=== PATIENT | male | born 1940 | race Caucasian/White ===

== ENCOUNTER 2017-07-25 14:49 | Inpatient (IN) | payer MEDICARE, OTHER ==
[~2017-07-25] VITALS: Ht 180.3 cm; Wt 83.9 kg
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
[2017-07-25 15:21] LABS: BASOPHILS # (AUTO) 0.1 /CMM (0.0-0.2); BASOPHILS % (AUTO) 1.8 % (0.0-2.0); EOSINOPHILS % (AUTO) 6.8 % (0.0-6.0); HEMATOCRIT 35 % (39-51); HEMOGLOBIN 12.1 g/dL (13.5-17.5); LYMPHOCYTES # (AUTO) 2.2 /CMM (0.8-4.8); LYMPHOCYTES % (AUTO) 33.8 % (20.0-44.0); MEAN CORPUSCULAR HGB CONC 35 g/dl (31.0-36.0); MEAN CORPUSCULAR VOLUME 94 fL (80-96); MONOCYTES # (AUTO) 0.6 /CMM (0.1-1.30); MONOCYTES % (AUTO) 9.4 % (2.0-12.0); NEUTROPHILS # (AUTO) 3.2 /CMM (1.8-8.9); NEUTROPHILS % (AUTO) 48.2 % (43.0-81.0); PLATELET COUNT (AUTO) 137 /CMM (150-450); RDW COEFFICIENT OF VARIATION 13.4 (11.5-15.0); RED BLOOD CELL COUNT(AUTO) 3.71 MIL/uL (4.5-6.0); WHITE BLOOD COUNT (AUTO) 6.5 K/uL (4.3-11.0)
--- NOTE | 2017-07-25 15:29 | NUR ---
PATIENT TRANSPORTED FOR CT.
[2017-07-25 15:41] LABS: INR 0.93 (0.85-1.15)
[2017-07-25 15:43] LABS: ALANINE AMINOTRANSFERASE 30 U/L (12-78); ALBUMIN 3.2 g/dL (3.4-5.0); ALKALINE PHOSPHATASE 58 U/L (46-116); ASPARTATE AMINOTRANSFERASE 33 U/L (15-37); BILIRUBIN,DIRECT 0.1 mg/dL (0.0-0.2); BILIRUBIN,TOTAL 0.3 mg/dL (0.2-1.0); CALCIUM, SERUM 8.9 mg/dL (8.5-10.1); CARBON DIOXIDE 26 mmol/L (21-32); CREATININE 1.8 mg/dL (0.6-1.3); GLUCOSE 156 mg/dL (74-106); TOTAL PROTEIN, SERUM 7.3 g/dL (6.4-8.2); UREA NITROGEN, BLOOD 39 mg/dL (7-18)
[2017-07-25] MEDS ORDERED: DUTA0.5C PO (15:44)
[2017-07-25] MEDS ORDERED: VALS320T2 PO (15:44)
[2017-07-25] MEDS ORDERED: LEVO50TA8 PO (15:44)
[2017-07-25] MEDS ORDERED: LATA2.5D7 EACHEYE (15:44)
[2017-07-25 15:48] LABS: CHLORIDE 103 mmol/L (98-107); POTASSIUM 4.1 mmol/L (3.5-5.1); SODIUM SERUM 136 mmol/L (136-145)
--- NOTE | 2017-07-25 16:12 | NUR ---
CALLED [employer] SEMI DRIVER WAS PAGED.
--- NOTE | 2017-07-25 16:39 | NUR ---
REPORT GIVEN TO MARISSA AGUILAR FOR FRANSISCA TELE 322-1
--- NOTE | 2017-07-25 17:43 | NUR ---
PAGED EPIC FOR PANEL
[2017-07-25 17:50] VITALS: BP 130/72
[2017-07-25] MEDS ORDERED: ONDANSETRON 4 MG TAB.RAPDIS PO STA (17:58)
[2017-07-25] MEDS ORDERED: MORPHINE SULFATE INJ 2 MG/ML DISP.SYRIN IV STA (17:58)
[2017-07-25] MEDS ORDERED: ONDANSETRON HCL/PF 4 MG/2 ML VIAL ONE (18:07)
[2017-07-25] MEDS ORDERED: MORPHINE SULFATE INJ 4 MG/ML DISP.SYRIN ONE (18:08)
--- NOTE | 2017-07-25 18:35 | NUR ---
ms rn received a new admission from er, 77 year old male,awake,alert,oriented x4,came in w/ a dx of syncope, denies pain at this time. will de admitted by dr. pike, waiting for orders.v//,p73,rr18,t97.8,s98% on room air.
--- NOTE | 2017-07-25 19:04 | NUR ---
ms rn on bed, eating dinner, still waiting for orders,all needs attended.
--- NOTE | 2017-07-25 19:10 | NUR ---
RN OPENING NOTES RECEIVED REPORT FROM AM SHIFT NURSE THAT PATIENT CAME IN THE UNIT VIA GURNEY, ACCOMPANIED BY ER STAFF. RECEIVED PATIENT IN BED, ALERT AND ORIENTED X 4, VERBALIZED THAT HE HAS PAIN WHEN HE MOVES BUT NO NEED FOR PAIN MEDICATION AT THIS TIME. ORIENTED PATIENT TO UNIT, ROOM AND TO THE ADMISSION PROCESS AND PATIENT VERBALIZED UNDERSTANDING. NOTED PATIENT WITH NO SOB, BREATHING EVEN AND UNLABORED AND IN NO ACUTE DISTRESS. BODY SKIN ASSESSMENT DONE, PATIENT IS COOPERATIVE AND FOLLOWS INSTRUCTIONS WELL. ALL NEEDS ATTENDED TO AT THIS TIME. PLACED CALL LIGHT WITHIN EASY REACH, BED LOCKED IN PLACE IN LOW POSITION. WILL CONTINUE TO MONITOR PT.
--- NOTE | 2017-07-25 19:20 | NUR ---
THERAPEUTIC SUPPORT STAFF NOTES PATIENT ON TELE MONITORING WITH SINUS RHYTHM @ 67 BPM. WILL CONTINUE TO MONITOR PT.
[2017-07-25] MEDS ORDERED: Z GUARD REMEDY 2 OZ OINT TP PRN (19:30)
[2017-07-25] MEDS ORDERED: ZOLPIDEM TARTRATE 5 MG TABLET PO PRN (19:30)
[2017-07-25] MEDS ORDERED: ONDANSETRON HCL/PF 4 MG/2 ML VIAL IVP PRN (19:30)
[2017-07-25] MEDS ORDERED: ACETAMINOPHEN 325 MG TABLET PO PRN (19:30)
[2017-07-25] MEDS ORDERED: MAGNESIUM HYDROXIDE 30 ML UDC PO PRN (19:30)
[2017-07-25] MEDS ORDERED: MAG HYDROX/AL HYDROX/SIMETH 30 ML UDC PO PRN (19:30)
[2017-07-25] MEDS: HYDROCODONE/APAP 5/325MG 1 EACH TABLET PO PRN (19:58)
[2017-07-25 20:00] VITALS: BP_SYST 118; BP_SYST 121; BP_DIAS 62; BP_DIAS 69
[2017-07-25] MEDS: IV NS 0.9% 1,000 ML IV PRN (20:05)
[2017-07-26] VITALS: BP 125/70
[2017-07-26] MEDS: HYDROCODONE/APAP 5/325MG 1 EACH TABLET PO PRN ×5 (00:20→22:06)
[2017-07-26 04:00] VITALS: BP_SYST 121; BP_SYST 122; BP_DIAS 68; BP_DIAS 75
[2017-07-26] MEDS: IV NS 0.9% 1,000 ML IV PRN (06:09)
--- NOTE | 2017-07-26 06:21 | NUR ---
PARTNER CCO CLOSING NOTES PATIENT IN BED, EASILY AROUSABLE, NOTED WITH NO SOB, BREATHING EVEN AND UNLABORED, AND IN NO ACUTE DISTRESS. CONTINUES TO RECEIVE IVF ORDERED VIA LEFT HAND IV PERIPHERAL LINE, IVF INFUSING WELL. ON TELE MONITORING WITH SINUS RHYTHM @ 66 BPM. ALL PATIENT'S NEEDS ATTENDED TO THROUGHOUT THE SHIFT. PLACED CALL LIGHT WITHIN EASY REACH, PLACED BED IN LOW POSITION AND LOCKED IN PLACE.
[2017-07-26 06:49] LABS: BASOPHILS % (AUTO) 0.6 % (0.0-2.0); EOSINOPHILS % (AUTO) 4.2 % (0.0-6.0); HEMATOCRIT 31 % (39-51); HEMOGLOBIN 10.6 g/dL (13.5-17.5); LYMPHOCYTES # (AUTO) 1.4 /CMM (0.8-4.8); LYMPHOCYTES % (AUTO) 19.9 % (20.0-44.0); MEAN CORPUSCULAR HGB CONC 34 g/dl (31.0-36.0); MEAN CORPUSCULAR VOLUME 95 fL (80-96); MONOCYTES # (AUTO) 0.8 /CMM (0.1-1.30); MONOCYTES % (AUTO) 10.6 % (2.0-12.0); NEUTROPHILS # (AUTO) 4.6 /CMM (1.8-8.9); NEUTROPHILS % (AUTO) 64.7 % (43.0-81.0); PLATELET COUNT (AUTO) 116 /CMM (150-450); RDW COEFFICIENT OF VARIATION 14.1 (11.5-15.0); RED BLOOD CELL COUNT(AUTO) 3.27 MIL/uL (4.5-6.0); WHITE BLOOD COUNT (AUTO) 7.2 K/uL (4.3-11.0)
[2017-07-26 07:02] LABS: CALCIUM, SERUM 8.2 mg/dL (8.5-10.1); CARBON DIOXIDE 23 mmol/L (21-32); CHLORIDE 106 mmol/L (98-107); CREATININE 1.6 mg/dL (0.6-1.3); GLUCOSE 105 mg/dL (74-106); PHOSPHORUS 3.5 mg/dL (2.5-4.9); POTASSIUM 4.6 mmol/L (3.5-5.1); SODIUM SERUM 137 mmol/L (136-145); UREA NITROGEN, BLOOD 34 mg/dL (7-18)
--- NOTE | 2017-07-26 07:05 | NUR ---
MS RN NOTES RECEIVED PATIENT IN BED ALERT ORIENTED X 4. NO ACUTE DISTRESS NOTED. BREATHING UNLABORED. IV ACCESS PATENT AND INTACT. SAFETY MEASURES IN PLACE. WILL CONTINUE TO MONITOR ACCORDINGLY.
[2017-07-26 07:49] LABS: CHOLESTEROL 151 mg/dL (<200); HDL CHOLESTEROL 95 mg/dL (40-60); LDL 80 mg/dL (0-99); TRIGLYCERIDES 21 mg/dL (30-150)
[2017-07-26 08:00] VITALS: BP 135/68
[2017-07-26] MEDS: VALSARTAN 80 MG TABLET PO SCH (08:02)
[2017-07-26] MEDS: DUTASTERIDE (0.5 MG) 0.5 MG CAPSULE PO SCH (08:02)
[2017-07-26] MEDS: LEVOTHYROXINE SODIUM 50 MCG TABLET PO SCH (08:41)
--- NOTE | 2017-07-26 08:50 | NUR ---
RN NOTES SEEN AND EVALUATED BY DR CARRION WITH NEW ORDERS MADE. NOTED AND CARRIED OUT.
[2017-07-26 08:58] LABS: TROPONIN I 0.021 ng/mL (0.00-0.056)
[2017-07-26] MEDS ORDERED: IV NS 0.9% 1,000 ML BAG IV SCH (09:00)
[2017-07-26 09:09] LABS: THYROID STIMULATING HORMONE 1.322 uIU/mL (0.358-3.74)
[2017-07-26] MEDS: IV NS 0.9% 1,000 ML IV SCH ×2 (09:12→14:59)
--- NOTE | 2017-07-26 10:40 | NUR ---
RN NOTES SEEN AND EVALUATED BY DR EWING WITH NEW ORDERS MADE. NOTED AND CARRIED OUT.
--- NOTE | 2017-07-26 11:08 | NUR ---
WOUND CARE CONSULT: PT PRESENTS WITH LEFT ELBOW ABRASION AND DRY ABRASION, BRUISING TO CHEST WELL LARGE AREA OF BRUISING TO LEFT HIP/PELVIC REGION, PRESENT ON ADMISSION. PT INDEPENDENT WITH BED MOBILITY AND GETS UP TO BATHROOM WITH ASSISTANCE. RECOMMENDATIONS MADE FOR WOUND CARE AND DISCUSSED WITH NURSING STAFF. WILL SEE PRN. BRUNSON IN AGREEMENT WITH PLAN OF CARE. Addendum: 07/26/17 at 1109 by OMARI PINEDA WNDNU Amended: Links added.
[2017-07-26 12:00] VITALS: BP 145/70
[2017-07-26 16:00] VITALS: BP 119/62
--- NOTE | 2017-07-26 19:05 | NUR ---
MS RN NOTES PATIENT IN BED ALERT ORIENTED X 4. NO ACUTE DISTRESS NOTED. BREATHING UNLABORED. IV ACCESS PATENT AND INTACT. SAFETY MEASURES IN PLACE. DUE MEDICATIONS GIVEN, NO ASE NOTED. ENDORSED TO NIGHT NURSE FOR CONTINUITY OF CARE.
[2017-07-26 20:00] VITALS: BP 133/73
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
[2017-07-26] MEDS: NEOMY SULF/BACITRAC ZN/POLY 15 GM TUBE TP SCH (21:21)
[2017-07-26] MEDS: LATANOPROST EYE DROP 0.005% 2.5 ML BOTTLE EACHEYE SCH (22:00)
--- NOTE | 2017-07-26 22:00 | NUR ---
telephone operators supervisor notes fili was not given d/t unavailability of the meds will flu in pharmacy in am, will endorse to next shift.
[2017-07-27] VITALS: BP 129/67
[2017-07-27] MEDS: HYDROCODONE/APAP 5/325MG 1 EACH TABLET PO PRN ×5 (02:52→21:09)
[2017-07-27 04:00] VITALS: BP_SYST 118; BP_SYST 128; BP_DIAS 61; BP_DIAS 68
--- NOTE | 2017-07-27 06:42 | NUR ---
telemarketing supervisor notes pts remain in bed awake and responsive , no significant change noted, will endorse to rn day shift for continuity of care.
[2017-07-27 06:45] LABS: BASOPHILS % (AUTO) 0.6 % (0.0-2.0); EOSINOPHILS % (AUTO) 4.9 % (0.0-6.0); HEMATOCRIT 31 % (39-51); HEMOGLOBIN 10.6 g/dL (13.5-17.5); LYMPHOCYTES # (AUTO) 1.2 /CMM (0.8-4.8); LYMPHOCYTES % (AUTO) 16.9 % (20.0-44.0); MEAN CORPUSCULAR HGB CONC 34 g/dl (31.0-36.0); MEAN CORPUSCULAR VOLUME 97 fL (80-96); MONOCYTES # (AUTO) 0.9 /CMM (0.1-1.30); MONOCYTES % (AUTO) 11.7 % (2.0-12.0); NEUTROPHILS # (AUTO) 4.8 /CMM (1.8-8.9); NEUTROPHILS % (AUTO) 65.9 % (43.0-81.0); PLATELET COUNT (AUTO) 108 /CMM (150-450); WHITE BLOOD COUNT (AUTO) 7.3 K/uL (4.3-11.0)
[2017-07-27 06:57] LABS: TROPONIN I < 0.017 ng/mL (0.00-0.056)
--- NOTE | 2017-07-27 07:10 | NUR ---
RN NOTES PT IS SITTING UP IN BED, ALERT AND ORIENTED, RESTING COMFORTABLY. PT ON RA, RESPIRATIONS ARE EVEN AND UNLABORED. IV ON R HAND INTACT AND SL. SAFETY MEASURES ARE IN PLACE, CALL LIGHT IS IN REACH. WILL CONTINUE TO MONITOR.
[2017-07-27] MEDS: LEVOTHYROXINE SODIUM 50 MCG TABLET PO SCH (07:21)
[2017-07-27 07:26] LABS: ALBUMIN 2.5 g/dL (3.4-5.0); ALKALINE PHOSPHATASE 40 U/L (46-116); ASPARTATE AMINOTRANSFERASE 52 U/L (15-37); BILIRUBIN,TOTAL 0.5 mg/dL (0.2-1.0); CALCIUM, SERUM 8.4 mg/dL (8.5-10.1); CARBON DIOXIDE 22 mmol/L (21-32); CHLORIDE 107 mmol/L (98-107); CREATININE 1.5 mg/dL (0.6-1.3); GLUCOSE 107 mg/dL (74-106); MAGNESIUM 1.5 mg/dL (1.8-2.4); POTASSIUM 4.6 mmol/L (3.5-5.1); SODIUM SERUM 136 mmol/L (136-145); TOTAL PROTEIN, SERUM 6.8 g/dL (6.4-8.2); UREA NITROGEN, BLOOD 28 mg/dL (7-18)
[2017-07-27 07:28] LABS: ALANINE AMINOTRANSFERASE < 12 U/L (12-78)
[2017-07-27 08:00] VITALS: BP 152/90
[2017-07-27] MEDS: DUTASTERIDE (0.5 MG) 0.5 MG CAPSULE PO SCH (08:14)
[2017-07-27] MEDS: VALSARTAN 80 MG TABLET PO SCH (08:14)
[2017-07-27] MEDS: NEOMY SULF/BACITRAC ZN/POLY 15 GM TUBE TP SCH (08:16)
[2017-07-27] MEDS: Magnesium 1GM/D5W 100ML PREMIX 100 ML IV SCH ×2 (08:42→09:45)
[2017-07-27 16:00] VITALS: BP 133/75
--- NOTE | 2017-07-27 18:30 | NUR ---
RN NOTES PT IS SITTING UP IN BED, ALERT AND ORIENTED. PT ON RA, RESPIRATIONS ARE EVEN AND UNLABORED. IV ON R HAND INTACT AND SL. ALL MEDS WERE GIVEN ORDERED AND PT NEEDS MET. NO SIGNS OF DISTRESS NOTED. SAFETY MEASURES ARE IN PLACE, CALL LIGHT IS IN REACH. WILL ENDORSE TO PUBLIC INFORMATION OFFICER RN FOR CONTINUITY OF CARE.
--- NOTE | 2017-07-27 19:30 | NUR ---
MS.RN OPENING NOTES PATIENT IN BED, ALERT, ORIENTED X3, ABLE TO VERBALIZED NEEDS, DENIES PAIN, ON PAIN MONITORING, WILL CONTINUE TO PROVIDE CARE, SKIN WARM TO TOUCH,RESPIRATIONS EVEN AND UNLABORED, REQUIRE SUPERVISION AND ASSISTANCE FOR PREVENTION OF FALL, BED IN LOCK POSITION, CALL LIGHTS WITHIN REACH. WILL MONITOR.
[2017-07-27 20:00] VITALS: BP 150/81
[2017-07-27] MEDS: LATANOPROST EYE DROP 0.005% 2.5 ML BOTTLE EACHEYE SCH (22:00)
[2017-07-28] MEDS: HYDROCODONE/APAP 5/325MG 1 EACH TABLET PO PRN ×2 (02:47→10:31)
--- NOTE | 2017-07-28 02:49 | NUR ---
MS/RN NOTES PAIN OF 8/10 REPORTED BY PATIENT, OBSERVE GUARDINGAND GRIMACE AFTER AMBULATING AND CHANGING POSITIONS, BLOOD PRESSURE CHECK AT 160/80. NORCO 5-325 MG PO GIVEN, WILL MONITOR RELIEF OF PAIN.
--- NOTE | 2017-07-28 06:13 | NUR ---
321-1MS/RN NOTES PATIENT IN BED, ABLE TO VERBALIZE NEEDS AT ALL TIMES, BRP WITH SUPERVISION, NEEDED PAIN MEDICATION GIVEN , RESPIRATIONS EVEN AND UNLABORED, RAMO TO SLEEP DURING THE NIGHT, BED IN LOCK POSITION, CALL LIGHTS WITHIN REACH, WILL CONTINUE TO MONITOR.. WILL ENDORSE TO AM RN FOR FRANSISCA
[2017-07-28] MEDS: LEVOTHYROXINE SODIUM 50 MCG TABLET PO SCH (06:38)
[2017-07-28 06:55] LABS: BASOPHILS % (AUTO) 0.6 % (0.0-2.0); EOSINOPHILS % (AUTO) 6.1 % (0.0-6.0); HEMATOCRIT 32 % (39-51); HEMOGLOBIN 10.9 g/dL (13.5-17.5); LYMPHOCYTES # (AUTO) 1.4 /CMM (0.8-4.8); LYMPHOCYTES % (AUTO) 17.5 % (20.0-44.0); MEAN CORPUSCULAR HGB CONC 34 g/dl (31.0-36.0); MEAN CORPUSCULAR VOLUME 94 fL (80-96); MONOCYTES # (AUTO) 0.9 /CMM (0.1-1.30); MONOCYTES % (AUTO) 11.6 % (2.0-12.0); NEUTROPHILS % (AUTO) 64.2 % (43.0-81.0); PLATELET COUNT (AUTO) 122 /CMM (150-450); RDW COEFFICIENT OF VARIATION 14.1 (11.5-15.0); RED BLOOD CELL COUNT(AUTO) 3.39 MIL/uL (4.5-6.0); WHITE BLOOD COUNT (AUTO) 7.8 K/uL (4.3-11.0)
[2017-07-28 07:16] LABS: CALCIUM, SERUM 8.5 mg/dL (8.5-10.1); CARBON DIOXIDE 26 mmol/L (21-32); CHLORIDE 105 mmol/L (98-107); CREATININE 1.6 mg/dL (0.6-1.3); GLUCOSE 101 mg/dL (74-106); POTASSIUM 4.6 mmol/L (3.5-5.1); SODIUM SERUM 137 mmol/L (136-145); UREA NITROGEN, BLOOD 26 mg/dL (7-18)
--- NOTE | 2017-07-28 07:35 | NUR ---
RN OPENING NOTES RECEIVED PT. IN BED A&OX4. BREATHING UNLABORED, AND EVENLY ON ROOM AIR. NO S/S OF ACUTE DISTRESS. BED IS IN LOWEST, AND LOCKED POSITION, SIDE RAILS UP, AND INSTRUCTED PT. TO USE CALL LIGHT FOR ASSISTANCE. ALL NEEDS MET. WILL CONTINUE TO ASSESS AND MONITOR.
[2017-07-28 08:00] VITALS: BP 133/73
[2017-07-28 08:26] VITALS: BP 133/73
[2017-07-28] MEDS: VALSARTAN 80 MG TABLET PO SCH (08:26)
[2017-07-28] MEDS: DUTASTERIDE (0.5 MG) 0.5 MG CAPSULE PO SCH (08:26)
[2017-07-28] MEDS: NEOMY SULF/BACITRAC ZN/POLY 15 GM TUBE TP SCH (08:27)
[2017-07-28] MEDS ORDERED: HYDR-3972 PO (08:39)
--- NOTE | 2017-07-28 12:18 | NUR ---
COMMERCIAL CLEANER NOTES PT. WAS DISCHARGED IN MEDICALLY STABLE CONDITION BY PRIVATE CAR WITH A FRIEND. DISCHARGE INSTRUCTIONS WERE GIVEN WITH EDUCATION ON NEW PRESCRIPTION, AND FOLLOW UP APPOINTMENTS, PT. VERBALIZED UNDERSTANDING. BELONGINGS LIST WAS CHECKED AND SIGNED. PT. WAS GIVEN PRESCRIPTION WITH EDUCATION AND VERBALIZED UNDERSTANDING. ID BAND, AND IV WAS REMOVED WITHOUT COMPLICATIONS. PICTURES WERE TAKEN AND WOUND CARE WAS PERFORMED, PT. TOLERATED WELL. ALL QUESTIONS WERE ANSWERED. PT. WAS ENCOURAGED TO STAY HYDRATED.
--- NOTE | 2017-07-28 12:22 | NUR ---
SOLE LEVELING MACHINE OPERATOR PT. LEFT WITH DISCHARGE PACKET, AND BELONGINGS.
--- NOTE | 2017-07-28 12:29 | NUR ---
RN NOTES DISCHARGE BEFORE PT. LEFT EXPLAINED TO PT., PER DR. MCCARTNEY NOTES, HE SHOULD NOT DRIVE FOR AT LEAST 6 MONTHS. DISCUSSED WITH PT., AND ALSO RECOMMENDED FOR PT. TO FOLLOW UP WITH HIS PCP IN ONE WEEK. PT. VERBALIZED UNDERSTANDING.
== END 2017-07-28 12:15 | disposition home or self-care (01) | DRG 683 ==
LOC: ER 14:52 → TELE 16:38 → MED 18:30 → TELE 21:53 → MED 07-27 09:38
PROVIDERS: ADMIT Family Medicine; ATTEND Family Medicine
DX: N17.0 Acute kidney failure with tubular necrosis (principal); S22.21XA Fracture of manubrium, initial encounter for closed fracture; E44.1 Mild protein-calorie malnutrition; E83.42 Hypomagnesemia; J43.9 Emphysema, unspecified; D63.8 Anemia in other chronic diseases classified elsewhere; Z82.49 Family history of ischemic heart disease and other diseases of the circulatory system; E86.9 Volume depletion, unspecified; D50.9 Iron deficiency anemia, unspecified; F10.10 Alcohol abuse, uncomplicated; S51.012A Laceration without foreign body of left elbow, initial encounter; E03.9 Hypothyroidism, unspecified; N18.3 Chronic kidney disease, stage 3 (moderate); Y92.410 Unspecified street and highway as the place of occurrence of the external cause; V89.2XXA Person injured in unspecified motor-vehicle accident, traffic, initial encounter; I12.9 Hypertensive chronic kidney disease with stage 1 through stage 4 chronic kidney disease, or unspecified chronic kidney disease; Z79.899 Other long term (current) drug therapy; N40.0 Benign prostatic hyperplasia without lower urinary tract symptoms; S61.412A Laceration without foreign body of left hand, initial encounter; Z87.891 Personal history of nicotine dependence; Z86.73 Personal history of transient ischemic attack (TIA), and cerebral infarction without residual deficits; H40.9 Unspecified glaucoma; R73.9 Hyperglycemia, unspecified; R91.1 Solitary pulmonary nodule; Y90.9 Presence of alcohol in blood, level not specified
CPT/HCPCS: 36415; 70450-TC; 71045-TC; 71250-TC; 80048-TC; 80053-TC; 80061-TC; 80076-TC; 82306; 82728-TC; 82962-TC; 83540-TC; 83735-TC; 84100-TC; 84439-TC; 84443-TC; 84484-TC; 85025-TC; 85730-TC; 87081-TC; 93307-TC; 93880-TC; 95819-TC; A4217; A4606; A6253; A6402; A6403; J2270; J2405; J3475; J7030; J7050; Z7610

== ENCOUNTER 2017-07-31 13:17 | Outpatient (CLI) | payer MEDICARE, OTHER ==
[~2017-07-31 13:17] MED LIST: DUTA0.5C PO; HYDR-3972 PO; LATA2.5D7 EACHEYE; LEVO50TA8 PO; VALS320T2 PO
== END 2017-07-31 23:59 | disposition home or self-care (01) ==
LOC: MSC 13:17
PROVIDERS: ATTEND Internal Medicine
DX: S22.20XD Unspecified fracture of sternum, subsequent encounter for fracture with routine healing (principal); V49.9XXD Car occupant (driver) (passenger) injured in unspecified traffic accident, subsequent encounter; Y92.89 Other specified places as the place of occurrence of the external cause; E46 Unspecified protein-calorie malnutrition; I10 Essential (primary) hypertension; N40.0 Benign prostatic hyperplasia without lower urinary tract symptoms; H40.9 Unspecified glaucoma; R91.1 Solitary pulmonary nodule

== ENCOUNTER 2018-04-28 15:04 | Emergency (ER) | payer MEDICARE, OTHER ==
[~2018-04-28] VITALS: Ht 172.7 cm; Wt 86.2 kg
[2018-04-28] MEDS ORDERED: TDAP [DIPH/PERTUSSIS/TET] 0.5 ML VIAL IM ONE ×2 (15:30→16:21)
--- NOTE | 2018-04-28 16:09 | NUR ---
PT BROUGHT IN BY PARAMEDICS FOR GLF INJURY TO LEFT ELBOW. PT ALERT AND ORIENTED X 3 WOUND CARE DONE X-RAY COMPLETED. WILL MONITOR PT.
--- NOTE | 2018-04-28 17:06 | NUR ---
PT HAD LONG ARM SPLINT PLACED ON LEFT ARM GIVEN ACI PRESCRPTION AND TOLD TO F/U WITH ORTHO MD . PT CALLED FRIEND TO BE PICKED UP
[2018-04-28 17:07] VITALS: BP 157/76
[2018-05-09] MEDS ORDERED: FERR-56 PO (11:38)
== END 2018-04-28 17:08 | disposition home or self-care (01) ==
LOC: ER 15:05
DX: S52.022A Displaced fracture of olecranon process without intraarticular extension of left ulna, initial encounter for closed fracture (principal); S00.81XA Abrasion of other part of head, initial encounter; I10 Essential (primary) hypertension; F10.10 Alcohol abuse, uncomplicated; Y90.9 Presence of alcohol in blood, level not specified; Z60.2 Problems related to living alone; W18.09XA Striking against other object with subsequent fall, initial encounter; Y93.01 Activity, walking, marching and hiking; Y92.89 Other specified places as the place of occurrence of the external cause; Y99.8 Other external cause status
CPT/HCPCS: 73080-TC; 90715; A6403

== ENCOUNTER 2018-04-29 17:45 | Emergency (ER) | payer MEDICARE, OTHER ==
[~2018-04-29] VITALS: Ht 180.3 cm; Wt 87.1 kg
[2018-04-29 17:50] VITALS: BP 156/72
[2018-05-09] MEDS ORDERED: FERR-56 PO (11:38)
== END 2018-04-29 19:13 | disposition home or self-care (01) ==
LOC: ER 17:49
DX: S51.012A Laceration without foreign body of left elbow, initial encounter (principal); L76.22 Postprocedural hemorrhage of skin and subcutaneous tissue following other procedure; I10 Essential (primary) hypertension; F10.10 Alcohol abuse, uncomplicated; Y90.9 Presence of alcohol in blood, level not specified; Z60.2 Problems related to living alone; W18.39XA Other fall on same level, initial encounter; Y93.89 Activity, other specified; Y92.89 Other specified places as the place of occurrence of the external cause; Y99.8 Other external cause status
CPT/HCPCS: A6253; A6403

== ENCOUNTER 2018-05-02 23:55 | Emergency (ER) | payer MEDICARE ==
[~2018-05-02] VITALS: Ht 180.3 cm; Wt 83.9 kg
[2018-05-03 00:06] VITALS: BP 149/74
[2018-05-03] MEDS ORDERED: GELATIN SPONGE,ABSORBABLE 1 SPONGE SPONGE TP ONE ×2 (00:37→01:19)
[2018-05-03] MEDS: GELATIN SPONGE,ABSORBABLE 1 SPONGE SPONGE TP ONE (00:57)
[2018-05-09] MEDS ORDERED: FERR-56 PO (11:38)
== END 2018-05-03 02:24 | disposition home or self-care (01) ==
LOC: ER 05-03 00:02
DX: S52.022D Displaced fracture of olecranon process without intraarticular extension of left ulna, subsequent encounter for closed fracture with routine healing (principal); I10 Essential (primary) hypertension; F10.10 Alcohol abuse, uncomplicated; Y90.9 Presence of alcohol in blood, level not specified; Z60.2 Problems related to living alone; W18.39XD Other fall on same level, subsequent encounter
CPT/HCPCS: A6402

== ENCOUNTER 2018-05-04 09:59 | Day surgery (SDC) | payer MEDICARE, OTHER ==
[2018-05-04] MEDS ORDERED: CEFAZOLIN SODIUM/DEXTROSE,ISO 50 ML IV ONE (11:29)
[2018-05-04] MEDS ORDERED: BACITRACIN 50000 UNITS/VIAL ONE (12:15)
[2018-05-04] MEDS ORDERED: ANESTHESIA TRAY IN PYXIS 1 EA TRAY MC ONE (12:17)
[2018-05-04] MEDS ORDERED: BUPIVACAINE MPF W/EPI 0.25% 30 ML VIAL ONE (12:17)
[2018-05-04] MEDS ORDERED: BUPIVACAINE 0.5 % PF 150 MG/30 ML VIAL ONE (13:39)
[2018-05-04] MEDS ORDERED: BACITRACIN ZINC OINT (15 GM) 15 GM TUBE TP ONE (13:41)
[2018-05-04] MEDS ORDERED: FENTANYL PF 100MCG/2ML AMPUL ONE (14:03)
[2018-05-04] MEDS ORDERED: HYDROMORPHONE 1 MG/1 ML DISP.SYRIN ONE (14:08)
[2018-05-04] MEDS ORDERED: HYDROCODONE/APAP 5/325MG 1 EACH TABLET ONE ×2 (14:36→14:55)
[2018-05-09] MEDS ORDERED: FERR-56 PO (11:38)
== END 2018-05-04 16:30 | disposition home or self-care (01) ==
LOC: DS 09:59
PROVIDERS: ATTEND Student in an Organized Health Care Education/Training Program
DX: S52.022A Displaced fracture of olecranon process without intraarticular extension of left ulna, initial encounter for closed fracture (principal); H40.9 Unspecified glaucoma; E03.9 Hypothyroidism, unspecified; Z80.3 Family history of malignant neoplasm of breast; Z88.1 Allergy status to other antibiotic agents; I12.9 Hypertensive chronic kidney disease with stage 1 through stage 4 chronic kidney disease, or unspecified chronic kidney disease; N18.3 Chronic kidney disease, stage 3 (moderate); Z82.49 Family history of ischemic heart disease and other diseases of the circulatory system; X58.XXXA Exposure to other specified factors, initial encounter; Y93.89 Activity, other specified; Y92.89 Other specified places as the place of occurrence of the external cause; Y99.8 Other external cause status; Z79.899 Other long term (current) drug therapy
CPT/HCPCS: 24685; 73080; A4565; A4606; A6253; A6402 ×2; C1713 ×2; J0690 ×2; J1100; J1170; J2704; J3010; J3490 ×3; J7120; Z7610

== ENCOUNTER 2018-05-08 09:39 | Inpatient (IN) | payer MEDICARE ==
[~2018-05-08] VITALS: Ht 180.3 cm; Wt 88.5 kg
[2018-05-08 09:59] LABS: BASOPHILS # (AUTO) 0.1 /CMM (0.0-0.2); BASOPHILS % (AUTO) 0.9 % (0.0-2.0); EOSINOPHILS % (AUTO) 5.5 % (0.0-6.0); HEMATOCRIT 31 % (39-51); HEMOGLOBIN 10.7 g/dL (13.5-17.5); LYMPHOCYTES # (AUTO) 1.1 /CMM (0.8-4.8); LYMPHOCYTES % (AUTO) 14.9 % (20.0-44.0); MEAN CORPUSCULAR HGB CONC 34 g/dl (31.0-36.0); MEAN CORPUSCULAR VOLUME 96 fL (80-96); MONOCYTES # (AUTO) 0.8 /CMM (0.1-1.30); MONOCYTES % (AUTO) 11.3 % (2.0-12.0); NEUTROPHILS # (AUTO) 4.8 /CMM (1.8-8.9); NEUTROPHILS % (AUTO) 67.4 % (43.0-81.0); PLATELET COUNT (AUTO) 212 /CMM (150-450); RED BLOOD CELL COUNT(AUTO) 3.27 MIL/uL (4.5-6.0); WHITE BLOOD COUNT (AUTO) 7.1 K/uL (4.3-11.0)
--- NOTE | 2018-05-08 10:00 | NUR ---
PT [id number] S/P SYNCOPE X2, SECOND EPISODE WITNESSED BY EMS WHILE SEATED. PT DENIES MURILLO OR DIZZINESS. PT DENIES TRAUMA DURING SYNCOPE. DENIES CP/SOB. RESP EVEN UNLABORED. SKIN WARM DRY, NOTED L ARM EDEMA 2/2 RECENT ELBOW SURGERY S/P GLF LAST WEEK, WITH HOLLY INTACT AND OPEN TO AIR. SKIN TEARS NOTED, APPEAR TO BE HEALING, PT REPORTS THEY ARE FROM INITIAL FALL LAST WEEK. PLACED ON MONITOR IN ER BED 10. MD AT BEDSIDE.
[2018-05-08 10:09] LABS: CALCIUM, SERUM 9.4 mg/dL (8.5-10.1); CARBON DIOXIDE 26 mmol/L (21-32); CHLORIDE 97 mmol/L (98-107); CREATININE 1.7 mg/dL (0.6-1.3); GLUCOSE 140 mg/dL (74-106); POTASSIUM 4.9 mmol/L (3.5-5.1); SODIUM SERUM 129 mmol/L (136-145); UREA NITROGEN, BLOOD 34 mg/dL (7-18)
[2018-05-08 10:15] LABS: ALANINE AMINOTRANSFERASE 19 U/L (12-78); ALBUMIN 2.9 g/dL (3.4-5.0); ALKALINE PHOSPHATASE 58 U/L (46-116); ASPARTATE AMINOTRANSFERASE 21 U/L (15-37); BILIRUBIN,DIRECT 0.1 mg/dL (0.0-0.2); BILIRUBIN,TOTAL 0.5 mg/dL (0.2-1.0); TOTAL PROTEIN, SERUM 7.1 g/dL (6.4-8.2)
--- NOTE | 2018-05-08 10:28 | NUR ---
EPIC PANEL PAGED
--- NOTE | 2018-05-08 10:45 | NUR ---
ASKED FOR BED
--- NOTE | 2018-05-08 10:58 | NUR ---
GOT BED 320-1
[2018-05-08] MEDS ORDERED: Z GUARD REMEDY 2 OZ OINT TP PRN (11:00)
[2018-05-08] MEDS ORDERED: ONDANSETRON HCL/PF 4 MG/2 ML VIAL IVP PRN (11:00)
[2018-05-08] MEDS ORDERED: ACETAMINOPHEN 325 MG TABLET PO PRN (11:00)
[2018-05-08] MEDS ORDERED: MAGNESIUM HYDROXIDE 30 ML UDC PO PRN (11:00)
[2018-05-08] MEDS ORDERED: MAG HYDROX/AL HYDROX/SIMETH 30 ML UDC PO PRN (11:00)
--- NOTE | 2018-05-08 11:00 | NUR ---
DR CARRION AT BEDSIDE.
--- NOTE | 2018-05-08 11:11 | NUR ---
REPORT GIVEN TO RAEGAN ANN FOR ADMISSION
[2018-05-08] MEDS ORDERED: AMOX1TAB16 PO (11:14)
--- NOTE | 2018-05-08 11:30 | NUR ---
PT TRANSPORTED TO [facility] IN STABLE CONDITION VIA ACLS PROTOCOL
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
[2018-05-08 11:40] VITALS: BP 139/74
[2018-05-08] MEDS: HYDROCODONE/APAP 5/325MG 1 EACH TABLET PO PRN ×3 (12:06→20:37)
[2018-05-08] MEDS: IV NS 0.9% 1,000 ML IV PRN ×2 (12:06→23:59)
[2018-05-08 12:42] LABS: THYROID STIMULATING HORMONE 0.693 uIU/mL (0.358-3.74)
[2018-05-08 16:00] VITALS: BP 131/70
--- NOTE | 2018-05-08 18:57 | NUR ---
RN CLOSING NOTE PT IN BED RESTING. NO S/S OF RESP DISTRESS/SOB. NO C/O PAIN AT THIS TIME. ALL PT NEEDS ANTICIPATED AND MET. SAFETY MEASURES IN PLACE, CALL LIGHT WITHIN REACH. WILL ENDORSE TO RECEIVING DISTRIBUTION STATION OPERATOR FOR FRANSISCA.
[2018-05-08 20:00] VITALS: BP 143/73
--- NOTE | 2018-05-08 20:05 | NUR ---
AMUSEMENT EQUIPMENT OPERATOR OPENING NOTES RECEIVED REPORT FROM RAEGAN ANN. PATIENT A/A/O X4, ABLE TO MAKE NEEDS KNOWN. BREATHING EVEN & UNLABORED, TOLERATING ROOM AIR. ON TELE W/ SINUS RHYTHM & RADIAL PULSES PRESENT. RIGHT AC IV #20 INTACT & PATENT W/ DRESSING CDI W/ IVF NS INFUSING WELL @ 100 ML/HR. C/O LEFT ARM PAIN, PAIN MED TO BE GIVEN. LEFT ARM MAINTAINED IN SLING & ELEVATED. SAFETY MEASURES IN PLACE W/ SIDE RAILS UP & BED ALARM ON. INSTRUCTED TO USE CALL LIGHT FOR ASSISTANCE. WILL CONTINUE TO MONITOR.
[2018-05-08] MEDS ORDERED: ATORVASTATIN 10 MG TABLET PO SCH (22:00)
[2018-05-08] MEDS ORDERED: LATANOPROST EYE DROP 0.005% 2.5 ML BOTTLE EACHEYE SCH (22:00)
[2018-05-08] MEDS ORDERED: LATANOPROST EYE DROP 0.005% 2.5 ML BOTTLE ONE (22:14)
[2018-05-09] VITALS: BP 136/74
[2018-05-09] MEDS: HYDROCODONE/APAP 5/325MG 1 EACH TABLET PO PRN ×2 (01:41→10:29)
[2018-05-09 04:00] VITALS: BP 145/76
[2018-05-09 06:21] LABS: APPEARANCE,URINE CLEAR (CLEAR); BILIRUBIN,URINE NEGATIVE (NEGATIVE); BLOOD, URINE NEGATIVE Ery/uL (NEGATIVE); COLOR,URINE YELLOW (YELLOW); KETONES,URINE NEGATIVE (NEGATIVE); LEUKOCYTE ESTERASE ,URINE NEGATIVE (NEGATIVE); NITRITE, URINE NEGATIVE (NEGATIVE); PH,URINE 6.5 (5.0-8.0); PROTEIN,URINE NEGATIVE (NEGATIVE); UGLUCOSE NEGATIVE (NEGATIVE); UROBILINOGEN,URINE 0.2 EU/dL (0.2)
[2018-05-09 07:08] LABS: BASOPHILS % (AUTO) 0.6 % (0.0-2.0); EOSINOPHILS % (AUTO) 5.9 % (0.0-6.0); HEMATOCRIT 30 % (39-51); HEMOGLOBIN 10.3 g/dL (13.5-17.5); LYMPHOCYTES # (AUTO) 0.9 /CMM (0.8-4.8); MEAN CORPUSCULAR HGB CONC 34 g/dl (31.0-36.0); MEAN CORPUSCULAR VOLUME 95 fL (80-96); MONOCYTES # (AUTO) 0.9 /CMM (0.1-1.30); MONOCYTES % (AUTO) 12.4 % (2.0-12.0); NEUTROPHILS # (AUTO) 4.7 /CMM (1.8-8.9); NEUTROPHILS % (AUTO) 68.1 % (43.0-81.0); PLATELET COUNT (AUTO) 205 /CMM (150-450); RED BLOOD CELL COUNT(AUTO) 3.14 MIL/uL (4.5-6.0)
[2018-05-09 07:24] LABS: CALCIUM, SERUM 8.9 mg/dL (8.5-10.1); CARBON DIOXIDE 25 mmol/L (21-32); CHLORIDE 99 mmol/L (98-107); CREATININE 1.5 mg/dL (0.6-1.3); GLUCOSE 103 mg/dL (74-106); PHOSPHORUS 3.4 mg/dL (2.5-4.9); POTASSIUM 4.6 mmol/L (3.5-5.1); SODIUM SERUM 133 mmol/L (136-145); UREA NITROGEN, BLOOD 32 mg/dL (7-18)
[2018-05-09 07:30] LABS: CHOLESTEROL 123 mg/dL (<200); HDL CHOLESTEROL 65 mg/dL (40-60); LDL 57 mg/dL (0-99); THYROID STIMULATING HORMONE 0.288 uIU/mL (0.358-3.74); TRIGLYCERIDES 37 mg/dL (30-150)
[2018-05-09] MEDS ORDERED: LEVOTHYROXINE SODIUM 50 MCG TABLET PO SCH (07:30)
[2018-05-09 08:00] VITALS: BP 148/80
--- NOTE | 2018-05-09 08:00 | NUR ---
RN NOTES PATIENT SEEN IN THE BED A/O X3/4 MALE. PATIENT STABLE HAS NO ACUTE RESPIRATORY DISTRESS, ENCOURAGED TO EXPRESS FEELINGS AND CONCERNS. SCHEDULED MEDICATION ADMINISTERED. INFUSING NS AT 100 MG/ML ON RIGHT AC AREA INTACT. ASSIST PATIENT TO THE BATHROOM. PATIENT HAS FRACTURE OF LEFT ARM. CALL LIGHT WITHIN TOO REACH. SAFETY PRECAUTION MAINTAINED ALL THE TIME.
[2018-05-09] MEDS ORDERED: PANTOPRAZOLE 40 MG TABLET.DR PO SCH (08:01)
[2018-05-09] MEDS ORDERED: VALSARTAN 80 MG TABLET PO SCH (09:00)
[2018-05-09] MEDS ORDERED: ASPIRIN 81 MG TAB.CHEW PO SCH (09:00)
[2018-05-09] MEDS ORDERED: PANTOPRAZOLE 40 MG VIAL IV SCH (09:00)
[2018-05-09] MEDS ORDERED: DUTASTERIDE (0.5 MG) 0.5 MG CAPSULE PO SCH (09:00)
--- NOTE | 2018-05-09 10:29 | NUR ---
RN NOTES ADMINISTERED NARCO 5/325 MG PO PRN FOR LEFT ARM PAIN 5/10 PER PATIENT REQUEST, V/S TAKEN BP-140/78, P-72, CONTINUED MONITORING.
--- NOTE | 2018-05-09 11:00 | NUR ---
RN NOTES PATIENT STABLE GOING TO D/C HOME PER JEWEL HANNAH.
[2018-05-09] MEDS ORDERED: FERR-56 PO (11:38)
[2018-05-09 12:00] VITALS: BP 130/78
[2018-05-09] MEDS ORDERED: SOD FERRIC GLUC 125 MG in IV NS 0.9% 100 ML IV SCH (14:00)
--- NOTE | 2018-05-09 18:05 | NUR ---
DISCHARGE NOTES PATIENT DISCHARGE AT THIS TIME GOING HOME WITH HOME HEALTH. PATIENT STABLE, V/S STABLE, NO COMPLAINING OF PAIN AT THIS TIME. MED RECONCILIATION AND DISCHARGE ORDER REVIEWED AND EXPLAINED TO PATIENT. PATIENT VERBALIZED UNDERSTANDING. BELONGING WITH THE PATIENT, PATIENT WILL FOLLOW PRIMARY MD, AND SURGEON DR LESTER. PRESCRIPTION HANDED TO THE PATIENT. PATIENT SIGN PAPERWORK, PICTURE TAKEN. ESCORTED PATIENT TO THE LOBBY FOR SAFETY. PATIENT NANOTECHNOLOGIST BY FRIEND.
[2018-05-10 05:10] LABS: *SPE A/G RATIO 0.9 (0.7-1.7); *SPE ALBUMIN 3.1 g/dL (2.9-4.4); *SPE ALPHA-1-GLOBULIN 0.4 g/dL (0.0-0.4); *SPE BETA GLOBULIN 1.1 g/dL (0.7-1.3); *SPE GLOBULIN, TOTAL 3.3 g/dL (2.2-3.9); *SPE M-SPIKE Not Observed g/dL (Not Observed); *SPEGAMMA GLOBULIN 0.9 g/dL (0.4-1.8)
== END 2018-05-09 18:35 | disposition home or self-care (01) | DRG 683 ==
LOC: ER 09:42 → TELE 11:34 → MED 05-09 11:21
PROVIDERS: ADMIT Registered Nurse; ATTEND Registered Nurse
DX: N17.9 Acute kidney failure, unspecified (principal); E87.1 Hypo-osmolality and hyponatremia; R55 Syncope and collapse; E83.42 Hypomagnesemia; E78.5 Hyperlipidemia, unspecified; Z86.73 Personal history of transient ischemic attack (TIA), and cerebral infarction without residual deficits; D64.9 Anemia, unspecified; E03.9 Hypothyroidism, unspecified; E86.9 Volume depletion, unspecified; I10 Essential (primary) hypertension; N40.0 Benign prostatic hyperplasia without lower urinary tract symptoms; R29.6 Repeated falls; R73.9 Hyperglycemia, unspecified; Z98.890 Other specified postprocedural states; S51.812D Laceration without foreign body of left forearm, subsequent encounter; X58.XXXD Exposure to other specified factors, subsequent encounter; R91.8 Other nonspecific abnormal finding of lung field; Z82.49 Family history of ischemic heart disease and other diseases of the circulatory system
CPT/HCPCS: 36415; 80048-TC; 80061-TC; 80076-TC; 81000-TC; 82728-TC; 83540-TC; 83735-TC; 84100-TC; 84155; 84165; 84439-TC; 84443-TC; 84484-TC; 85025-TC; 85730-TC; 87081-TC; 93307-TC; 93880-TC; A6253; A6402; G0378; J2916; J7030

== ENCOUNTER 2018-05-31 07:55 | Day surgery (SDC) | payer MEDICARE ==
[~2018-05-31 07:55] MED LIST changes: +AMOX1TAB16 PO; +FERR-56 PO
[2018-05-31] MEDS ORDERED: LIDOCAINE HCL/PF 1% 30 ML SDV ONE (08:56)
== END 2018-05-31 10:09 | disposition home or self-care (01) ==
LOC: DS 07:55
PROVIDERS: ATTEND Internal Medicine Interventional Cardiology
DX: R55 Syncope and collapse (principal); D64.9 Anemia, unspecified; I10 Essential (primary) hypertension; N40.0 Benign prostatic hyperplasia without lower urinary tract symptoms; Z86.73 Personal history of transient ischemic attack (TIA), and cerebral infarction without residual deficits; Z82.49 Family history of ischemic heart disease and other diseases of the circulatory system; Z79.899 Other long term (current) drug therapy
CPT/HCPCS: 33285; C1764; J3490

== ENCOUNTER 2019-03-24 00:08 | Emergency (ER) | payer MEDICARE ==
[~2019-03-24] VITALS: Ht 180.3 cm; Wt 85.3 kg
--- NOTE | 2019-03-24 00:32 | NUR ---
RECEIVED PATIENT FROM HOME, AMBULATORY. WITH COMPLAINT OF INCREASED BP SINCE EARLIER TODAY. ASSISTED TO BED COMFORTABLY. ATTACHED TO MONITOR. BP 178/92 RA. WILL CONTINUE TO MONITOR ACCORDINGLY. Addendum: 03/24/19 at 0033 by KRYS PATIENT DENIES ANY OTHER DISCOMFORT AT THIS TIME.
--- NOTE | 2019-03-24 01:02 | NUR ---
SEEN AND EXAMINED BY
[2019-03-24 01:43] LABS: CALCIUM, SERUM 9.1 mg/dL (8.5-10.1); CARBON DIOXIDE 23 mmol/L (21-32); CHLORIDE 98 mmol/L (98-107); CREATININE 1.5 mg/dL (0.6-1.3); GLUCOSE 102 mg/dL (74-106); POTASSIUM 4.3 mmol/L (3.5-5.1); SODIUM SERUM 131 mmol/L (136-145); UREA NITROGEN, BLOOD 37 mg/dL (7-18)
--- NOTE | 2019-03-24 02:09 | NUR ---
SEEN BY MD. PER PATIENT HIS BUN/CREA IS NORMALLY HIGH. MD CANCELED FLUID ORDERED AT THIS TIME. NO OTHER SIGNS/SYMPTOMS NOTED AT THIS TIME.
[2019-03-24] MEDS ORDERED: IV NS 0.9% 1,000 ML IV PRN ×2 (02:30)
--- NOTE | 2019-03-24 03:01 | NUR ---
DISCHARGE INSTRUCTIONS GIVEN TO PATIENT. INSTRUCTED PATIENT TO CHECK WITH PRIMARY PHYSICIAN FOR FOLLOW UP. INSTRUCTED TO GO TO ER OR CALL 911 FOR NEW OR WORSENING CONDITION. PATIENT VERBALIZED UNDERSTANDING. PATIENT SIGNED THE DISCHARGE PAPERS. AMBULATORY. LEAVED THE FACILITY AT THIS TIME.
[2019-03-24 03:03] VITALS: BP 145/76
== END 2019-03-24 03:03 | disposition home or self-care (01) ==
LOC: ER 00:10
DX: I10 Essential (primary) hypertension (principal); E86.0 Dehydration; E03.9 Hypothyroidism, unspecified; F10.10 Alcohol abuse, uncomplicated; Y90.9 Presence of alcohol in blood, level not specified; Z98.890 Other specified postprocedural states; Z60.2 Problems related to living alone; Z79.899 Other long term (current) drug therapy
CPT/HCPCS: 36415; 80048; 84484; 99283; J7030

== ENCOUNTER 2019-11-22 12:16 | Inpatient (IN) | payer MEDICARE ==
[~2019-11-22] VITALS: Ht 180.3 cm; Wt 78.6 kg
--- NOTE | 2019-11-22 12:30 | NUR ---
PT SENT BY DR CHAHAL FOR SURGERY.
--- NOTE | 2019-11-22 12:47 | NUR ---
DR MCCANN AT BEDSIDE FOR EVAL.
--- NOTE | 2019-11-22 13:28 | NUR ---
NURSING SUP GAVE M/S BED 204-1.
--- NOTE | 2019-11-22 13:30 | NUR ---
REPORT GIVEN TO OTILIA ANN. AWAITING TRANSFER.
[2019-11-22] MEDS ORDERED: MULT-24 PO (13:56)
[2019-11-22] MEDS ORDERED: ACYC800T PO (13:56)
[2019-11-22] MEDS ORDERED: ASCO-352 PO (13:56)
[2019-11-22] MEDS ORDERED: OLME40TA18 PO (13:56)
[2019-11-22] MEDS ORDERED: SODI15DR7 LEFTEYE (13:58)
[2019-11-22] MEDS ORDERED: IV NS 0.9% 1,000 ML IV PRN (15:12)
[2019-11-22] MEDS ORDERED: MAGNESIUM HYDROXIDE 30 ML UDC PO PRN (15:30)
[2019-11-22] MEDS ORDERED: Z GUARD REMEDY 2 OZ OINT TP PRN (15:30)
[2019-11-22] MEDS ORDERED: MAG HYDROX/AL HYDROX/SIMETH 30 ML UDC PO PRN (15:30)
[2019-11-22] MEDS ORDERED: ONDANSETRON HCL/PF 4 MG/2 ML VIAL IVP PRN (15:30)
[2019-11-22] MEDS ORDERED: ACETAMINOPHEN 325 MG TABLET PO PRN (15:30)
[2019-11-22] MEDS ORDERED: FAMOTIDINE/PF INJ 20 MG/2 ML VIAL IV ONE (16:14)
[2019-11-22] MEDS ORDERED: ROCURONIUM BROMIDE 50 MG/5 ML ONE (16:14)
[2019-11-22] MEDS ORDERED: BACITRACIN 50000 UNITS/VIAL ONE (16:21)
[2019-11-22] MEDS ORDERED: BUPIVACAINE 0.5 % PF 150 MG/30 ML VIAL ONE (16:21)
[2019-11-22 16:34] LABS: BASOPHILS # (AUTO) 0.1 /CMM (0.0-0.2); BASOPHILS % (AUTO) 1.1 % (0.0-2.0); EOSINOPHILS % (AUTO) 1.3 % (0.0-6.0); HEMATOCRIT 35 % (39-51); HEMOGLOBIN 11.8 g/dL (13.5-17.5); LYMPHOCYTES # (AUTO) 1.2 /CMM (0.8-4.8); LYMPHOCYTES % (AUTO) 16.4 % (20.0-44.0); MEAN CORPUSCULAR HGB CONC 34 g/dl (31.0-36.0); MEAN CORPUSCULAR VOLUME 101 fL (80-96); MONOCYTES % (AUTO) 13.1 % (2.0-12.0); NEUTROPHILS # (AUTO) 5.2 /CMM (1.8-8.9); NEUTROPHILS % (AUTO) 68.1 % (43.0-81.0); PLATELET COUNT (AUTO) 179 /CMM (150-450); RED BLOOD CELL COUNT(AUTO) 3.51 MIL/uL (4.5-6.0); WHITE BLOOD COUNT (AUTO) 7.6 K/uL (4.3-11.0)
[2019-11-22 16:58] LABS: ALANINE AMINOTRANSFERASE 18 U/L (12-78); ALBUMIN 3.3 g/dL (3.4-5.0); ALKALINE PHOSPHATASE 58 U/L (46-116); ASPARTATE AMINOTRANSFERASE 19 U/L (15-37); BILIRUBIN,TOTAL 0.5 mg/dL (0.2-1.0); CALCIUM, SERUM 9.5 mg/dL (8.5-10.1); CARBON DIOXIDE 22 mmol/L (21-32); CHLORIDE 98 mmol/L (98-107); CREATININE 1.6 mg/dL (0.6-1.3); GLUCOSE 96 mg/dL (74-106); MAGNESIUM 2.2 mg/dL (1.8-2.4); PHOSPHORUS 3.3 mg/dL (2.5-4.9); POTASSIUM 4.3 mmol/L (3.5-5.1); SODIUM SERUM 129 mmol/L (136-145); TOTAL PROTEIN, SERUM 7.8 g/dL (6.4-8.2); UREA NITROGEN, BLOOD 29 mg/dL (7-18)
[2019-11-22] MEDS ORDERED: ACYCLOVIR 800 MG TABLET PO ONE (17:00)
[2019-11-22] MEDS: SODIUM CHLORIDE 5% SOLN OPHTH 15 ML BOTTLE LEFTEYE SCH ×2 (17:00→20:24)
[2019-11-22] MEDS ORDERED: CEFTRIAXONE 2 G in IV D5W 100 ML IV SCH (17:00)
[2019-11-22] MEDS ORDERED: HYDROMORPHONE 1 MG/1 ML DISP.SYRIN ONE ×2 (17:39→18:00)
[2019-11-22] MEDS ORDERED: VANCOMYCIN 1.25 GM in IV D5W 250 ML IV SCH (18:00)
[2019-11-22 18:30] VITALS: BP 131/74
--- NOTE | 2019-11-22 18:30 | NUR ---
MS RN NOTES PATIENT BACK FROM SURGERY. PATIENT ALERT AND ORIENTED, ON NASAL CANNULA 2L WITH NON-LABORED BREATHING, AND NO SOB NOTED. SKIN WARM AND DRY TO TOUCH. PATIENT PRESENTS WITH NO PAIN OR DISCOMFORT. WILL CONTINUE TO MONITOR PATIENT.
[2019-11-22 18:45] VITALS: BP 134/70
--- NOTE | 2019-11-22 19:05 | NUR ---
RN MS OPENING NOTES RECEIVED PATIENT IN BED AWAKE ALERT AND ORIENTED X4, ON 2 L VIA NC TOLERATING WELL, RESPIRATIONS EVEN AND UNLABORED WITH EQUAL RISE AND FALL OF CHEST, NOTED WITH SLING TO LEFT ARM WITH RADHA BANDAGE INTACT AND CLEAN, DENIES ANY PAIN AT THIS TIME, IV SITE TO RIGHT FA #18 G INTACT AND PATENT, IVF RUNNING ORDERED, ORIENTED TO STAFF AND CALL LIGHT AND KEPT WITHIN REACH, WILL GIVE VANCOMYCIN ORDERED, SAFETY PRECAUTIONS IN PLACE, LOW BED AND LOCKED, SCD'S IN PLACE. ALL NEEDS ATTENDED AT THIS TIME, URINAL WITHIN REACH , WILL CONTINUE TO MONITOR.
--- NOTE | 2019-11-22 19:46 | NUR ---
MS/RN NOTE ASHWIN-128 5% BRAEDEN NOT ADMINISTERED DUE TO PHARMACY DID NOT HAVE IT. PER PHARMACY IT WILL BE DELIVERED TOMORROW.
[2019-11-22 20:00] VITALS: BP 136/69
[2019-11-22 20:04] VITALS: BP 136/69
--- NOTE | 2019-11-22 20:24 | NUR ---
rn ms notes spoke to pharmacy regarding alex sodium chloride eyedrops as ordered per pharmacy put non administered medication will be available tomorrow.
[2019-11-22] MEDS: LATANOPROST EYE DROP 0.005% 2.5 ML BOTTLE EACHEYE SCH (21:03)
[2019-11-23] MEDS: MORPHINE SULFATE INJ 2 MG/ML DISP.SYRIN IV PRN ×2 (01:42→05:45)
--- NOTE | 2019-11-23 01:50 | NUR ---
rn ms notes patient complained of pain to left arm states 6/10 requested for pain medication. morphine prn offered patient agreed, prn given as ordered witness and wasted with another rn. properly discarded in waste bin, vs wnl , will continue to monitor for effectiveness.
--- NOTE | 2019-11-23 05:46 | NUR ---
rn ms notes patient complained of pain to left arm states 6/10 it comes and goes requested for pain medication. morphine prn offered patient agreed, prn given as ordered witness and wasted with another rn. properly discarded in waste bin, vs wnl , will continue to monitor for effectiveness.
--- NOTE | 2019-11-23 06:33 | NUR ---
RN MS CLOSING NOTES PATIENT IN BED AWAKE, ALERT, AND ORIENTED X4, ON 2 L VIA NC TOLERATING WELL, RESPIRATIONS EVEN AND UNLABORED WITH EQUAL RISE AND FALL OF CHEST, SLING TO LEFT ARM WITH RADHA BANDAGE INTACT AND CLEAN, DENIES ANY PAIN AT THIS TIME MORPHINE IS EFFECTIVE AT THIS TIME, IV SITE TO RIGHT FA #18 G INTACT AND PATENT, IVF RUNNING ORDERED, CALL LIGHT KEPT WITHIN REACH, ASSISTED TO RESTROOM PATIENT ABLE TO VOID AND HAD BOWEL MOVEMENT, SAFETY PRECAUTIONS IN PLACE, LOW BED AND LOCKED, SCD'S IN PLACE. ALL NEEDS ATTENDED AT THIS TIME, URINAL WITHIN REACH , WILL CONTINUE TO MONITOR REMAINS COMFORTABLE AND WILL ENDORSE TO NEXT SHIFT.
[2019-11-23 07:05] LABS: BASOPHILS % (AUTO) 0.5 % (0.0-2.0); HEMATOCRIT 31 % (39-51); HEMOGLOBIN 10.7 g/dL (13.5-17.5); LYMPHOCYTES # (AUTO) 0.6 /CMM (0.8-4.8); LYMPHOCYTES % (AUTO) 8.2 % (20.0-44.0); MEAN CORPUSCULAR HGB CONC 34 g/dl (31.0-36.0); MEAN CORPUSCULAR VOLUME 100 fL (80-96); MONOCYTES # (AUTO) 0.8 /CMM (0.1-1.30); MONOCYTES % (AUTO) 10.8 % (2.0-12.0); NEUTROPHILS # (AUTO) 5.9 /CMM (1.8-8.9); NEUTROPHILS % (AUTO) 79.5 % (43.0-81.0); PLATELET COUNT (AUTO) 160 /CMM (150-450); RED BLOOD CELL COUNT(AUTO) 3.14 MIL/uL (4.5-6.0); WHITE BLOOD COUNT (AUTO) 7.4 K/uL (4.3-11.0)
[2019-11-23 07:20] LABS: CALCIUM, SERUM 8.6 mg/dL (8.5-10.1); CARBON DIOXIDE 23 mmol/L (21-32); CHLORIDE 96 mmol/L (98-107); CREATININE 1.5 mg/dL (0.6-1.3); GLUCOSE 121 mg/dL (74-106); PHOSPHORUS 2.7 mg/dL (2.5-4.9); POTASSIUM 4.7 mmol/L (3.5-5.1); SODIUM SERUM 125 mmol/L (136-145); UREA NITROGEN, BLOOD 22 mg/dL (7-18)
--- NOTE | 2019-11-23 07:30 | NUR ---
Patient awake , alert and oriented x4 . No complains of pain at this time. No distress noted. Ambulatory. Left upper extremity NWB status. Will continue to monitor .
[2019-11-23 08:00] VITALS: BP 127/69
[2019-11-23] MEDS: MULTIVITAMINS,THERAGRAN 1 UDTAB TABLET PO SCH (08:08)
[2019-11-23] MEDS: LEVOTHYROXINE SODIUM 50 MCG TABLET PO SCH (08:08)
[2019-11-23] MEDS: ASCORBIC ACID 500 MG TABLET PO SCH (08:08)
[2019-11-23] MEDS: PANTOPRAZOLE 40 MG VIAL IV SCH (08:09)
[2019-11-23] MEDS: DUTASTERIDE (0.5 MG) 0.5 MG CAPSULE PO SCH (08:09)
[2019-11-23] MEDS: LOSARTAN POTASSIUM 50 MG TABLET PO SCH (08:09)
[2019-11-23] MEDS: ACYCLOVIR 800 MG TABLET PO SCH ×2 (08:22→20:26)
[2019-11-23] MEDS: SODIUM CHLORIDE 5% SOLN OPHTH 15 ML BOTTLE LEFTEYE SCH ×4 (09:00→20:26)
[2019-11-23] MEDS: VANCOMYCIN 0.75 GM in IV D5W 250 ML IV SCH ×2 (11:20→22:02)
[2019-11-23 11:24] LABS: CHOLESTEROL 134 mg/dL (<200); HDL CHOLESTEROL 60 mg/dL (40-60); LDL 63 mg/dL (0-99); THYROID STIMULATING HORMONE 0.725 uIU/mL (0.358-3.74); TRIGLYCERIDES 29 mg/dL (30-150)
[2019-11-23 12:20] LABS: APPEARANCE,URINE CLEAR (CLEAR); BILIRUBIN,URINE NEGATIVE (NEGATIVE); BLOOD, URINE TRACE-INTA Ery/uL (NEGATIVE); COLOR,URINE YELLOW (YELLOW); KETONES,URINE NEGATIVE (NEGATIVE); LEUKOCYTE ESTERASE ,URINE NEGATIVE (NEGATIVE); NITRITE, URINE NEGATIVE (NEGATIVE); PH,URINE 6.5 (5.0-8.0); PROTEIN,URINE NEGATIVE (NEGATIVE); UGLUCOSE NEGATIVE (NEGATIVE); UROBILINOGEN,URINE 0.2 EU/dL (0.2)
[2019-11-23 12:24] LABS: CREATININE, URINE 73.5 MG/DL (30.0-125.0); URINE TOTAL PROTEIN 18.8 mg/dL (0-11.9)
[2019-11-23] MEDS ORDERED: HYDROCODONE/APAP 5/325MG TABLET PO PRN (12:30)
[2019-11-23] MEDS ORDERED: HYDROCODONE/APAP 10/325MG TABLET PO PRN (12:30)
[2019-11-23 14:02] LABS: BACTERIA,URINE Rare /HPF (None Seen); RBC,URINE 0-2 /HPF (0-2); SQUAMOUS EPITHELIAL CELL,UR Rare /HPF (None Seen); WBC,URINE NONE SEEN /HPF (0-3)
[2019-11-23 15:05] LABS: EOSINOPHIL,URINE None Seen
[2019-11-23 16:00] VITALS: BP 142/73
--- NOTE | 2019-11-23 16:45 | NUR ---
PICC line ordered per Howard Lou NP. Nursing line department supervisor informed.
[2019-11-23] MEDS: MEROPENEM 500 MG in IV NS 0.9% 50 ML IV SCH (16:53)
--- NOTE | 2019-11-23 18:37 | NUR ---
Patient resting in bed , alert and oriented x 4, on room air , tolerating well. PICC line insertion ordered , possible tonight 2200 . Patient will go with IV anx with HH. Patient ambulated in sommer way. All needs attended and patient kept comfortable at all times. IV line remain intact and patent. Will endorse to next shift for FRANSISCA
--- NOTE | 2019-11-23 19:05 | NUR ---
RN MS CLOSING NOTES RECEIVED PATIENT IN BED AWAKE ALERT AND ORIENTED X4, ON RA TOLERATING WELL, RESPIRATIONS EVEN AND UNLABORED WITH EQUAL RISE AND FALL OF CHEST, NOTED WITH SLING TO LEFT ARM WITH RADHA BANDAGE INTACT AND CLEAN, DENIES ANY PAIN AT THIS TIME, IV SITE TO RIGHT FA #18 G INTACT AND PATENT, IVF RUNNING ORDERED,ORIENTED TO STAFF AND CALL LIGHT AND KEPT WITHIN REACH, SAFETY PRECAUTIONS IN PLACE, LOW BED AND LOCKED, SCD'S IN PLACE. ALL NEEDS ATTENDED AT THIS TIME, URINAL WITHIN REACH , WILL CONTINUE TO MONITOR.REMAINS COMFORTABLE AT THIS TIME. Addendum: 11/23/19 at 2034 by BRIAN MOON RN CLARIFICATION RN MS OPENING NOTES
[2019-11-23 20:20] VITALS: BP 130/66
[2019-11-23 20:39] VITALS: BP 130/66
[2019-11-23] MEDS: LATANOPROST EYE DROP 0.005% 2.5 ML BOTTLE EACHEYE SCH (22:02)
--- NOTE | 2019-11-24 00:58 | NUR ---
rn ms notes picc line consent signed by patient, picc line PA at bedside.
[2019-11-24] MEDS: MEROPENEM 500 MG in IV NS 0.9% 50 ML IV SCH ×2 (04:50→16:50)
--- NOTE | 2019-11-24 05:57 | NUR ---
RN MS CLOSING NOTES PATIENT IN BED AWAKE ALERT AND ORIENTED X4, ON RA TOLERATING WELL, RESPIRATIONS EVEN AND UNLABORED WITH EQUAL RISE AND FALL OF CHEST, NOTED WITH SLING TO LEFT ARM WITH RADHA BANDAGE INTACT AND CLEAN, DENIES ANY PAIN AT THIS TIME, IV SITE TO RIGHT FA #18 G REMOVED, LEAKING PICC LINE TO RIGHT UPPER ARM IN PLACE C/D/I IVF RUNNING ORDERED,ORIENTED TO STAFF AND CALL LIGHT AND KEPT WITHIN REACH PATIENT MOVED TO 3W ROOM 323-2, SAFETY PRECAUTIONS IN PLACE, LOW BED AND LOCKED, SCD'S IN PLACE. ALL NEEDS ATTENDED AT THIS TIME, URINAL WITHIN REACH , WILL CONTINUE TO MONITOR.REMAINS COMFORTABLE AT THIS TIME AND WILL ENDORSE TO NEXT SHIFT, ALL BELONGINGS TRANSFERRED, ALL MEDICATIONS TRANSFERRED, CHART TRANSFERRED.
[2019-11-24 06:39] LABS: BASOPHILS % (AUTO) 0.5 % (0.0-2.0); HEMATOCRIT 33 % (39-51); HEMOGLOBIN 11.2 g/dL (13.5-17.5); LYMPHOCYTES # (AUTO) 0.9 /CMM (0.8-4.8); LYMPHOCYTES % (AUTO) 14.1 % (20.0-44.0); MEAN CORPUSCULAR HGB CONC 34 g/dl (31.0-36.0); MEAN CORPUSCULAR VOLUME 100 fL (80-96); MONOCYTES # (AUTO) 0.9 /CMM (0.1-1.30); MONOCYTES % (AUTO) 13.4 % (2.0-12.0); NEUTROPHILS # (AUTO) 4.5 /CMM (1.8-8.9); PLATELET COUNT (AUTO) 165 /CMM (150-450); WHITE BLOOD COUNT (AUTO) 6.7 K/uL (4.3-11.0)
[2019-11-24 07:05] LABS: THYROID STIMULATING HORMONE 0.756 uIU/mL (0.358-3.74); URIC ACID 3.7 mg/dL (2.6-7.2)
[2019-11-24 07:09] LABS: CARBON DIOXIDE 24 mmol/L (21-32); CHLORIDE 94 mmol/L (98-107); CREATININE 1.6 mg/dL (0.6-1.3); GLUCOSE 101 mg/dL (74-106); MAGNESIUM 1.9 mg/dL (1.8-2.4); PHOSPHORUS 3.2 mg/dL (2.5-4.9); POTASSIUM 3.9 mmol/L (3.5-5.1); SODIUM SERUM 125 mmol/L (136-145); UREA NITROGEN, BLOOD 22 mg/dL (7-18)
[2019-11-24 07:33] LABS: MAGNESIUM 1.9 mg/dL (1.8-2.4); PHOSPHORUS 3.3 mg/dL (2.5-4.9)
[2019-11-24 08:00] VITALS: BP 128/66
[2019-11-24] MEDS: LEVOTHYROXINE SODIUM 50 MCG TABLET PO SCH (08:26)
[2019-11-24] MEDS: MULTIVITAMINS,THERAGRAN 1 UDTAB TABLET PO SCH (08:46)
[2019-11-24] MEDS: ASCORBIC ACID 500 MG TABLET PO SCH (08:47)
[2019-11-24] MEDS: PANTOPRAZOLE 40 MG VIAL IV SCH (08:47)
[2019-11-24] MEDS: LOSARTAN POTASSIUM 50 MG TABLET PO SCH (08:48)
[2019-11-24] MEDS: ACYCLOVIR 800 MG TABLET PO SCH ×2 (08:49→21:03)
[2019-11-24] MEDS: DUTASTERIDE (0.5 MG) 0.5 MG CAPSULE PO SCH (08:49)
[2019-11-24] MEDS: SODIUM CHLORIDE 5% SOLN OPHTH 15 ML BOTTLE LEFTEYE SCH ×4 (08:49→21:04)
[2019-11-24] MEDS: VANCOMYCIN 0.75 GM in IV D5W 250 ML IV SCH ×2 (12:05→23:15)
--- NOTE | 2019-11-24 13:00 | NUR ---
PATIENT DC PLANNING WITH COAT REPAIR INSPECTOR. FOR CONTINUES IV ATB.
[2019-11-24] MEDS ORDERED: FEE PK DOSING 1 MIN EA MC ONE (15:42)
--- NOTE | 2019-11-24 18:46 | NUR ---
MS RN NOTES PATIENT IN STABLE CONDITION. ALERT ORIENTED X3. NO ACUTE CHANGES NOTED. ALL DUE MEDICATIONS ADMINISTERED, ALL NEEDS MET. WILL ENDORSE CARET TO PM SHIFT.
--- NOTE | 2019-11-24 19:56 | NUR ---
MS RN OPENING NOTES PATIENT RECEIVED RESTING IN BED A/O X 4 STABLE ON RA WITH BREATHING EVEN AND UNLABORED, NO SOB NOTED. NO SIGNS OF ACUTE DISTRESS. NO COMPLAINTS OF PAIN OR DISCOMFORT AT THE MOMENT. L ARM NWB. ERROL PICC LINE LOCATED HL. SAFETY PRECAUTIONS IN PLACE WITH BED IN LOWEST POSITION, CALL LIGHT WITHIN REACH, BREAKS ON, SIDE RAILS UP. WILL CONTINUE TO MONITOR THROUGHOUT THE NIGHT.
[2019-11-24 20:00] VITALS: BP 137/69
[2019-11-24] MEDS: LATANOPROST EYE DROP 0.005% 2.5 ML BOTTLE EACHEYE SCH (21:40)
[2019-11-25] MEDS: MEROPENEM 500 MG in IV NS 0.9% 50 ML IV SCH (04:47)
--- NOTE | 2019-11-25 06:50 | NUR ---
MS RN CLOSING NOTES PATIENT RESTING IN BED A/O X 4 STABLE ON RA WITH BREATHING EVEN AND UNLABORED, NO SOB NOTED. NO SIGNS OF ACUTE DISTRESS. NO COMPLAINTS OF PAIN OR DISCOMFORT AT THE MOMENT. L ARM NWB. ERROL PICC LINE LOCATED HL. SAFETY PRECAUTIONS IN PLACE WITH BED IN LOWEST POSITION, CALL LIGHT WITHIN REACH, BREAKS ON, SIDE RAILS UP. ALL NEEDS ATTENDED TO. WILL ENDORSE TO ONCOMING SHIFT ABOUT FRANSISCA.
[2019-11-25 07:11] LABS: BASOPHILS % (AUTO) 0.7 % (0.0-2.0); EOSINOPHILS % (AUTO) 4.9 % (0.0-6.0); HEMATOCRIT 35 % (39-51); HEMOGLOBIN 11.7 g/dL (13.5-17.5); LYMPHOCYTES # (AUTO) 1.1 /CMM (0.8-4.8); LYMPHOCYTES % (AUTO) 17.3 % (20.0-44.0); MEAN CORPUSCULAR HGB CONC 34 g/dl (31.0-36.0); MEAN CORPUSCULAR VOLUME 100 fL (80-96); MONOCYTES # (AUTO) 0.9 /CMM (0.1-1.30); NEUTROPHILS # (AUTO) 4.1 /CMM (1.8-8.9); NEUTROPHILS % (AUTO) 63.1 % (43.0-81.0); PLATELET COUNT (AUTO) 180 /CMM (150-450); WHITE BLOOD COUNT (AUTO) 6.4 K/uL (4.3-11.0)
[2019-11-25 07:44] LABS: CALCIUM, SERUM 9.5 mg/dL (8.5-10.1); CARBON DIOXIDE 23 mmol/L (21-32); CHLORIDE 95 mmol/L (98-107); CREATININE 1.5 mg/dL (0.6-1.3); GLUCOSE 105 mg/dL (74-106); PHOSPHORUS 3.1 mg/dL (2.5-4.9); POTASSIUM 4.3 mmol/L (3.5-5.1); SODIUM SERUM 125 mmol/L (136-145); UREA NITROGEN, BLOOD 24 mg/dL (7-18)
[2019-11-25] MEDS: LEVOTHYROXINE SODIUM 50 MCG TABLET PO SCH (07:52)
[2019-11-25 08:00] VITALS: BP 127/70
[2019-11-25] MEDS: ASCORBIC ACID 500 MG TABLET PO SCH (08:51)
[2019-11-25] MEDS: PANTOPRAZOLE 40 MG VIAL IV SCH (08:51)
[2019-11-25] MEDS: MULTIVITAMINS,THERAGRAN 1 UDTAB TABLET PO SCH (08:51)
[2019-11-25 08:52] VITALS: BP 127/70
[2019-11-25] MEDS: LOSARTAN POTASSIUM 50 MG TABLET PO SCH (08:52)
[2019-11-25] MEDS: SODIUM CHLORIDE 5% SOLN OPHTH 15 ML BOTTLE LEFTEYE SCH ×2 (08:53→14:01)
[2019-11-25] MEDS: DUTASTERIDE (0.5 MG) 0.5 MG CAPSULE PO SCH (08:53)
[2019-11-25] MEDS: ACYCLOVIR 800 MG TABLET PO SCH (08:53)
[2019-11-25 09:07] LABS: PTH, INTACT 33 pg/mL (15-65)
[2019-11-25] MEDS ORDERED: Hydrocodone/Apap 10/325MG PO (09:56)
[2019-11-25] MEDS ORDERED: ACET325T53 PO (09:56)
[2019-11-25] MEDS ORDERED: MAGN400O6 PO (09:56)
[2019-11-25] MEDS ORDERED: HYDR-3972 PO (09:56)
[2019-11-25] MEDS ORDERED: LOSA50TA3 PO (09:56)
[2019-11-25] MEDS ORDERED: RXVAN XX (09:56)
[2019-11-25] MEDS ORDERED: ERTA1VIA4 IJ (09:56)
[2019-11-25] MEDS: VANCOMYCIN 0.75 GM in IV D5W 250 ML IV SCH (11:32)
--- NOTE | 2019-11-25 16:50 | NUR ---
MS RN NOTES PATIENT DISCHARGED HOME WITH HOME HEALTH. PATIENT HAS ALREADY BEEN CONTACTED BY DONA BRANDON AND [facility]. PATIENT DISCHARGED WITH PICC LINE. DRESSING CHANGED. ORDERS OBTAINED TO CHANGE DRESSING FROM SONDRA SUMNER. BEFORE DISCHARGE. PATIENT WITH BOSSINESS CARDS OF DR. VELASQUEZ. ALL BELONGINGS ACCOUNTED FOR, BELONGING LIST SINGED. ESCORTED TO CAR.
[2019-11-27 08:14] LABS: *SPE A/G RATIO 0.9 (0.7-1.7); *SPE ALBUMIN 2.8 g/dL (2.9-4.4); *SPE ALPHA-1-GLOBULIN 0.3 g/dL (0.0-0.4); *SPE ALPHA-2-GLOBULIN 0.9 g/dL (0.4-1.0); *SPE BETA GLOBULIN 0.9 g/dL (0.7-1.3); *SPE GLOBULIN, TOTAL 3.1 g/dL (2.2-3.9); *SPE M-SPIKE Not Observed g/dL (Not Observed); *SPEGAMMA GLOBULIN 0.9 g/dL (0.4-1.8)
== END 2019-11-25 16:55 | disposition home health service (06) | DRG 507 ==
LOC: ER 12:21 → MEDSG2 13:32 → MED 11-24 05:47
PROVIDERS: ADMIT Registered Nurse; ATTEND Registered Nurse
PROC: 0R9M0ZZ Drainage of Left Elbow Joint, Open Approach (ICD-10-PCS; 2019-11-22)
PROC: 0XP70JZ Removal of Synthetic Substitute from Left Upper Extremity, Open Approach (ICD-10-PCS; 2019-11-22)
PROC: 02HV33Z Insertion of Infusion Device into Superior Vena Cava, Percutaneous Approach (ICD-10-PCS; principal; 2019-11-24)
PROC: B548ZZA Ultrasonography of Superior Vena Cava, Guidance (ICD-10-PCS; 2019-11-24)
DX: T84.59XA Infection and inflammatory reaction due to other internal joint prosthesis, initial encounter (principal); N17.0 Acute kidney failure with tubular necrosis; E22.2 Syndrome of inappropriate secretion of antidiuretic hormone; Y83.9 Surgical procedure, unspecified as the cause of abnormal reaction of the patient, or of later complication, without mention of misadventure at the time of the procedure; Y92.9 Unspecified place or not applicable; E03.9 Hypothyroidism, unspecified; E78.5 Hyperlipidemia, unspecified; D64.9 Anemia, unspecified; Z91.81 History of falling; N40.0 Benign prostatic hyperplasia without lower urinary tract symptoms; Z86.73 Personal history of transient ischemic attack (TIA), and cerebral infarction without residual deficits; Z95.0 Presence of cardiac pacemaker; Z82.49 Family history of ischemic heart disease and other diseases of the circulatory system; N18.9 Chronic kidney disease, unspecified; I12.9 Hypertensive chronic kidney disease with stage 1 through stage 4 chronic kidney disease, or unspecified chronic kidney disease
CPT/HCPCS: 36415; 71045-TC; 80048-TC; 80053-TC; 80061-TC; 80202-TC; 81000-TC; 82550-TC; 82570-TC; 83605-TC; 83735-TC; 83935-TC; 83970; 84100-TC; 84155; 84155-TC; 84165; 84300-TC; 84443-TC; 84550-TC; 85025-TC; 85610-TC; 85652-TC; 85730-TC; 86140-TC; 86850-TC; 87070-TC; 87081-TC; 97116-TC; A4216; A4217; A4565; A6253; A6403; C1751; C9113; G0378; J0330; J0690; J0696; J1170; J2185; J2270; J2405; J2704; J2765; J3370; J3490; J7030; J7060

== ENCOUNTER 2019-12-05 10:34 | Outpatient (CLI) | payer MEDICARE ==
[~2019-12-05 10:34] MED LIST changes: +ACYC800T PO; -AMOX1TAB16 PO; +ASCO-352 PO; +ERTA1VIA4 IJ; -FERR-56 PO; +LOSA50TA3 PO; +MULT-24 PO; +OLME40TA18 PO; +RXVAN XX; +SODI15DR7 LEFTEYE; -VALS320T2 PO
== END 2019-12-05 23:59 | disposition home or self-care (01) ==
LOC: MSC 10:34
PROVIDERS: ATTEND Internal Medicine
DX: T85.79XD Infection and inflammatory reaction due to other internal prosthetic devices, implants and grafts, subsequent encounter (principal); I10 Essential (primary) hypertension; E78.5 Hyperlipidemia, unspecified; E03.9 Hypothyroidism, unspecified; D63.8 Anemia in other chronic diseases classified elsewhere; Z95.818 Presence of other cardiac implants and grafts; N40.0 Benign prostatic hyperplasia without lower urinary tract symptoms

== ENCOUNTER 2020-10-19 15:03 | Emergency (ER) | payer MEDICARE ==
[~2020-10-19] VITALS: Ht 177.8 cm; Wt 77.1 kg
[~2020-10-19 15:03] MED LIST changes: +ACYC-108 PO; -ACYC800T PO; +LATA2.5D15 EACHEYE; -LATA2.5D7 EACHEYE
[2020-10-19 15:26] VITALS: BP 145/74
--- NOTE | 2020-10-19 15:37 | NUR ---
PT SEEN AND EXAMINED BY .
[2020-10-19] MEDS ORDERED: TDAP [DIPH/PERTUSSIS/TET] 0.5 ML VIAL IM ONE ×2 (15:47→16:00)
--- NOTE | 2020-10-19 15:50 | NUR ---
ARTHUR WESTON AT BEDSIDE FOR WOUND CLEANING AND DRESSING.
--- NOTE | 2020-10-19 16:04 | NUR ---
Patient discharged to home in stable condition. Written and verbal after care instructions given. Patient verbalizes understanding of instruction.
== END 2020-10-19 16:06 | disposition home or self-care (01) ==
LOC: ER 15:03
DX: S51.012A Laceration without foreign body of left elbow, initial encounter (principal); I10 Essential (primary) hypertension; E03.9 Hypothyroidism, unspecified; Z98.890 Other specified postprocedural states; Z88.1 Allergy status to other antibiotic agents; Z60.2 Problems related to living alone; Z79.899 Other long term (current) drug therapy; W01.0XXA Fall on same level from slipping, tripping and stumbling without subsequent striking against object, initial encounter; Y93.89 Activity, other specified; Y92.89 Other specified places as the place of occurrence of the external cause; Y99.8 Other external cause status
CPT/HCPCS: 90715

== ENCOUNTER 2021-01-03 23:47 | Emergency (ER) | payer MEDICARE ==
[~2021-01-03] VITALS: Ht 180.3 cm; Wt 81.2 kg
[2021-01-04] MEDS ORDERED: hydrALAZINE HCL IV 20 MG VIAL IV ONE
--- NOTE | 2021-01-04 | NUR ---
PT BROUGHT IN FOR HIGH BLOOD PRESSURE C/O POSTERIOR NECK SORENESS. PT STATES NO PAIN. PT IS A/OX4. CURRENTLY ON ROOM AIR SHOWING NO S/S OF RESP DISTRESS/SOB. PT CONNECTED TO SEAM TAPER MACHINE. ALL SAFETY MEASURES IMPLEMENTED. WILL CONTINUE TO MONITOR AND ASSESS FOR ANY CHANGES.
[2021-01-04] MEDS ORDERED: hydrALAZINE HCL IV 20 MG VIAL ONE (00:03)
--- NOTE | 2021-01-04 00:15 | NUR ---
EKG DONE AT BEDSIDE
[2021-01-04 00:24] LABS: BASOPHILS % (AUTO) 0.8 % (0.0-2.0); EOSINOPHILS % (AUTO) 4.9 % (0.0-6.0); HEMATOCRIT 34 % (39-51); HEMOGLOBIN 11.4 g/dL (13.5-17.5); LYMPHOCYTES # (AUTO) 2.1 K/uL (0.8-4.8); LYMPHOCYTES % (AUTO) 40.1 % (20.0-44.0); MEAN CORPUSCULAR HGB CONC 34 g/dl (31.0-36.0); MEAN CORPUSCULAR VOLUME 96 fL (80-96); MONOCYTES # (AUTO) 0.8 K/uL (0.1-1.30); MONOCYTES % (AUTO) 16.1 % (2.0-12.0); NEUTROPHILS % (AUTO) 38.1 % (43.0-81.0); PLATELET COUNT (AUTO) 170 K/uL (150-450); RED BLOOD CELL COUNT(AUTO) 3.52 MIL/uL (4.5-6.0); WHITE BLOOD COUNT (AUTO) 5.1 K/uL (4.3-11.0)
[2021-01-04 00:26] LABS: CALCIUM, SERUM 8.9 mg/dL (8.5-10.1); CARBON DIOXIDE 28 mmol/L (21-32); CHLORIDE 98 mmol/L (98-107); POTASSIUM 4.8 mmol/L (3.5-5.1)
--- NOTE | 2021-01-04 00:26 | NUR ---
PT BP NOW WNL. LAST BP READING WAS 144/72. WILL CONTINUE TO MONITOR AND ASSESS FOR ANY CHANGES.
[2021-01-04 00:31] LABS: ALANINE AMINOTRANSFERASE 26 U/L (12-78); ALBUMIN 3.6 g/dL (3.4-5.0); ALKALINE PHOSPHATASE 65 U/L (46-116); ASPARTATE AMINOTRANSFERASE 23 U/L (15-37); BILIRUBIN,DIRECT 0.1 mg/dL (0.0-0.2); BILIRUBIN,TOTAL 0.3 mg/dL (0.2-1.0); TOTAL PROTEIN, SERUM 7.8 g/dL (6.4-8.2)
[2021-01-04 00:49] LABS: CREATININE 1.8 mg/dL (0.6-1.3); GLUCOSE 110 mg/dL (74-106); SODIUM SERUM 133 mmol/L (136-145); UREA NITROGEN, BLOOD 48 mg/dL (7-18)
[2021-01-04] MEDS ORDERED: IV NS 0.9% 1,000 ML BAG IV ONE (01:00)
[2021-01-04 02:47] LABS: EOSINOPHILS % (MANUAL) 4 % (0-4); LYMPHOCYTES % (MANUAL) 47 % (16-48); MONOCYTES % (MANUAL) 13 % (0-11.0); NEUTROPHILS % (MANUAL) 36 (42-76)
--- NOTE | 2021-01-04 02:50 | NUR ---
Patient discharged to home in stable condition. Written and verbal after care instructions given. Patient verbalizes understanding of instruction.
[2021-01-04 02:51] VITALS: BP 151/76
== END 2021-01-04 02:51 | disposition home or self-care (01) ==
LOC: ER 23:48
DX: R79.89 Other specified abnormal findings of blood chemistry (principal); I10 Essential (primary) hypertension; E86.0 Dehydration; E03.9 Hypothyroidism, unspecified; Z98.890 Other specified postprocedural states; Z88.1 Allergy status to other antibiotic agents; Z60.2 Problems related to living alone; Z79.899 Other long term (current) drug therapy
CPT/HCPCS: 36415; 70450; 71045; 80048; 80076; 84484; 85007; 85025; 93005; 96361; 96374; 99285; J0360

== ENCOUNTER 2021-05-11 09:30 | Outpatient (CLI) | payer MEDICARE ==
[2021-05-11 10:45] LABS: BASOPHILS % (AUTO) 1.1 % (0.0-2.0); EOSINOPHILS % (AUTO) 9.2 % (0.0-6.0); HEMATOCRIT 32 % (39-51); HEMOGLOBIN 10.9 g/dL (13.5-17.5); LYMPHOCYTES # (AUTO) 1.1 K/uL (0.8-4.8); MEAN CORPUSCULAR HGB CONC 34 g/dl (31.0-36.0); MEAN CORPUSCULAR VOLUME 97 fL (80-96); MONOCYTES # (AUTO) 0.5 K/uL (0.1-1.30); MONOCYTES % (AUTO) 11.7 % (2.0-12.0); NEUTROPHILS # (AUTO) 2.3 K/uL (1.8-8.9); PLATELET COUNT (AUTO) 155 K/uL (150-450); RED BLOOD CELL COUNT(AUTO) 3.35 MIL/uL (4.5-6.0); WHITE BLOOD COUNT (AUTO) 4.4 K/uL (4.3-11.0)
[2021-05-11 11:30] LABS: BILIRUBIN,URINE NEGATIVE (NEGATIVE); COLOR,URINE YELLOW (YELLOW); LEUKOCYTE ESTERASE ,URINE NEGATIVE (NEGATIVE); NITRITE, URINE NEGATIVE (NEGATIVE); PH,URINE 6.5 (5.0-8.0); PROTEIN,URINE NEGATIVE (NEGATIVE); UGLUCOSE NEGATIVE (NEGATIVE); UROBILINOGEN,URINE 0.2 EU/dL (0.2)
[2021-05-11 12:03] LABS: URINE TOTAL PROTEIN 18.4 mg/dL (0-11.9)
[2021-05-11 12:14] LABS: ALANINE AMINOTRANSFERASE 20 U/L (12-78); ALBUMIN 3.2 g/dL (3.4-5.0); ALKALINE PHOSPHATASE 49 U/L (46-116); ASPARTATE AMINOTRANSFERASE 19 U/L (15-37); BILIRUBIN,TOTAL 0.4 mg/dL (0.2-1.0); CALCIUM, SERUM 9.4 mg/dL (8.5-10.1); CARBON DIOXIDE 25 mmol/L (21-32); CHLORIDE 101 mmol/L (98-107); GLUCOSE 92 mg/dL (74-106); MAGNESIUM 2.3 mg/dL (1.8-2.4); PHOSPHORUS 3.7 mg/dL (2.5-4.9); POTASSIUM 5.1 mmol/L (3.5-5.1); SODIUM SERUM 134 mmol/L (136-145); UREA NITROGEN, BLOOD 44 mg/dL (7-18)
[2021-05-11 14:08] LABS: C-REACTIVE PROTEIN < 0.2 mg/dL (0.0-0.9)
[2021-05-13 05:07] LABS: *IFE A/G RATIO 1.3 (0.7-1.7); *IFE ALBUMIN 3.5 g/dL (2.9-4.4); *IFE ALPHA-2-GLOBULIN 0.7 g/dL (0.4-1.0); *IFE BETA GLOBULIN 0.9 g/dL (0.7-1.3); *IFE GAMMA GLOBULIN 1.1 g/dL (0.4-1.8); *IFE M-SPIKE Not Observed g/dL (Not Observed); *IFEALPHA-1-GLOBULIN 0.1 g/dL (0.0-0.4)
== END 2021-05-11 23:59 | disposition home or self-care (01) ==
LOC: MSC 09:30
PROVIDERS: ATTEND Internal Medicine
DX: I12.9 Hypertensive chronic kidney disease with stage 1 through stage 4 chronic kidney disease, or unspecified chronic kidney disease (principal); N18.9 Chronic kidney disease, unspecified; E83.9 Disorder of mineral metabolism, unspecified; M89.9 Disorder of bone, unspecified; N40.0 Benign prostatic hyperplasia without lower urinary tract symptoms; E03.9 Hypothyroidism, unspecified; Z86.79 Personal history of other diseases of the circulatory system; Z79.899 Other long term (current) drug therapy
CPT/HCPCS: 80053; 81003; 82043; 82306; 82607; 83036; 83735; 83970; 84100; 84155; 84165; 85025; 85652; 86038; 86140; G0463; 36415

== ENCOUNTER → 2021-05-13 | Outpatient (CLI) | payer MEDICARE | END | disposition home or self-care (01) | LOC: US 08:57 | PROVIDERS: ATTEND Internal Medicine | DX: N18.9 Chronic kidney disease, unspecified (principal) | CPT/HCPCS: 76770-TC ==

== ENCOUNTER 2021-05-18 09:00 | Outpatient (CLI) | payer MEDICARE | END 2021-05-18 23:59 | disposition home or self-care (01) | LOC: MSC 09:00 | PROVIDERS: ATTEND Internal Medicine | DX: I12.9 Hypertensive chronic kidney disease with stage 1 through stage 4 chronic kidney disease, or unspecified chronic kidney disease (principal); N18.9 Chronic kidney disease, unspecified; E83.9 Disorder of mineral metabolism, unspecified; M89.9 Disorder of bone, unspecified; N40.0 Benign prostatic hyperplasia without lower urinary tract symptoms; E03.9 Hypothyroidism, unspecified; Z79.890 Hormone replacement therapy; H40.9 Unspecified glaucoma; Z86.79 Personal history of other diseases of the circulatory system ==

== ENCOUNTER 2021-08-10 08:55 | Outpatient (CLI) | payer MEDICARE ==
[2021-08-10 11:42] LABS: BILIRUBIN,URINE NEGATIVE (NEGATIVE); COLOR,URINE YELLOW (YELLOW); LEUKOCYTE ESTERASE ,URINE NEGATIVE (NEGATIVE); NITRITE, URINE NEGATIVE (NEGATIVE); PROTEIN,URINE NEGATIVE (NEGATIVE); UGLUCOSE NEGATIVE (NEGATIVE); UROBILINOGEN,URINE 0.2 EU/dL (0.2)
[2021-08-10 12:04] LABS: ALANINE AMINOTRANSFERASE 20 U/L (12-78); ALBUMIN 3.4 g/dL (3.4-5.0); ALKALINE PHOSPHATASE 59 U/L (46-116); ASPARTATE AMINOTRANSFERASE 21 U/L (15-37); BILIRUBIN,TOTAL 0.4 mg/dL (0.2-1.0); CALCIUM, SERUM 9.4 mg/dL (8.5-10.1); CARBON DIOXIDE 25 mmol/L (21-32); CHLORIDE 102 mmol/L (98-107); CREATININE 1.8 mg/dL (0.6-1.3); GLUCOSE 93 mg/dL (74-106); MAGNESIUM 2.2 mg/dL (1.8-2.4); PHOSPHORUS 4.3 mg/dL (2.5-4.9); POTASSIUM 5.8 mmol/L (3.5-5.1); SODIUM SERUM 135 mmol/L (136-145); TOTAL PROTEIN, SERUM 7.5 g/dL (6.4-8.2); UREA NITROGEN, BLOOD 48 mg/dL (7-18)
[2021-08-10 13:25] LABS: URINE TOTAL PROTEIN 6.4 mg/dL (0-11.9)
== END 2021-08-10 23:59 | disposition home or self-care (01) ==
LOC: MSC 08:55
PROVIDERS: ATTEND Internal Medicine
DX: N40.0 Benign prostatic hyperplasia without lower urinary tract symptoms (principal); I12.9 Hypertensive chronic kidney disease with stage 1 through stage 4 chronic kidney disease, or unspecified chronic kidney disease; N18.9 Chronic kidney disease, unspecified; E83.9 Disorder of mineral metabolism, unspecified; M89.9 Disorder of bone, unspecified; E03.9 Hypothyroidism, unspecified; H40.9 Unspecified glaucoma; Z87.898 Personal history of other specified conditions; Z79.899 Other long term (current) drug therapy
CPT/HCPCS: 36415; 80053; 81003; 82043; 82570; 83735; 83970; 84100; 84155; G0463

== ENCOUNTER 2021-08-23 10:24 | Outpatient (CLI) | payer MEDICARE ==
[2021-08-23 11:23] LABS: CALCIUM, SERUM 9.3 mg/dL (8.5-10.1); CARBON DIOXIDE 27 mmol/L (21-32); CHLORIDE 101 mmol/L (98-107); GLUCOSE 71 mg/dL (74-106); POTASSIUM 5.4 mmol/L (3.5-5.1); SODIUM SERUM 135 mmol/L (136-145); UREA NITROGEN, BLOOD 59 mg/dL (7-18)
== END 2021-08-23 23:59 | disposition home or self-care (01) ==
LOC: LAB 10:24
PROVIDERS: ATTEND Internal Medicine
DX: E03.9 Hypothyroidism, unspecified (principal); H40.9 Unspecified glaucoma; N18.9 Chronic kidney disease, unspecified; N17.9 Acute kidney failure, unspecified
CPT/HCPCS: 36415; 80048-TC

== ENCOUNTER → 2021-08-25 | Outpatient (CLI) | payer MEDICARE | END | disposition home or self-care (01) | LOC: MSC 14:00 | PROVIDERS: ATTEND Internal Medicine | DX: E87.5 Hyperkalemia (principal); I12.9 Hypertensive chronic kidney disease with stage 1 through stage 4 chronic kidney disease, or unspecified chronic kidney disease; N18.32 Chronic kidney disease, stage 3b; E83.9 Disorder of mineral metabolism, unspecified; M89.9 Disorder of bone, unspecified; N40.0 Benign prostatic hyperplasia without lower urinary tract symptoms; E03.9 Hypothyroidism, unspecified; H40.9 Unspecified glaucoma; Z87.898 Personal history of other specified conditions; Z79.899 Other long term (current) drug therapy ==

== ENCOUNTER 2021-09-02 10:41 | Outpatient (CLI) | payer MEDICARE ==
[2021-09-02 12:12] LABS: CARBON DIOXIDE 27 mmol/L (21-32); CHLORIDE 101 mmol/L (98-107); GLUCOSE 100 mg/dL (74-106); POTASSIUM 5.8 mmol/L (3.5-5.1); SODIUM SERUM 134 mmol/L (136-145); UREA NITROGEN, BLOOD 52 mg/dL (7-18)
== END 2021-09-02 23:59 | disposition home or self-care (01) ==
LOC: LAB 10:41
PROVIDERS: ATTEND Internal Medicine
DX: N40.0 Benign prostatic hyperplasia without lower urinary tract symptoms (principal); N17.9 Acute kidney failure, unspecified; E78.5 Hyperlipidemia, unspecified
CPT/HCPCS: 36415; 80048-TC

== ENCOUNTER 2021-09-15 14:30 | Outpatient (CLI) | payer MEDICARE | END 2021-09-15 23:59 | disposition home or self-care (01) | LOC: MSC 14:30 | PROVIDERS: ATTEND Internal Medicine | DX: E87.5 Hyperkalemia (principal); I12.9 Hypertensive chronic kidney disease with stage 1 through stage 4 chronic kidney disease, or unspecified chronic kidney disease; N18.32 Chronic kidney disease, stage 3b; E83.9 Disorder of mineral metabolism, unspecified; M89.9 Disorder of bone, unspecified; N40.0 Benign prostatic hyperplasia without lower urinary tract symptoms; E03.9 Hypothyroidism, unspecified; H40.9 Unspecified glaucoma; Z87.898 Personal history of other specified conditions; Z79.899 Other long term (current) drug therapy ==

== ENCOUNTER 2021-10-04 13:48 | Outpatient (CLI) | payer MEDICARE ==
[2021-10-04 14:33] LABS: CALCIUM, SERUM 9.2 mg/dL (8.5-10.1); CARBON DIOXIDE 28 mmol/L (21-32); CHLORIDE 104 mmol/L (98-107); CREATININE 1.7 mg/dL (0.6-1.3); GLUCOSE 96 mg/dL (74-106); POTASSIUM 4.5 mmol/L (3.5-5.1); SODIUM SERUM 137 mmol/L (136-145); UREA NITROGEN, BLOOD 39 mg/dL (7-18)
== END 2021-10-04 23:59 | disposition home or self-care (01) ==
LOC: LAB 13:48
PROVIDERS: ATTEND Internal Medicine
DX: N17.9 Acute kidney failure, unspecified (principal); N40.0 Benign prostatic hyperplasia without lower urinary tract symptoms; E03.9 Hypothyroidism, unspecified; E78.5 Hyperlipidemia, unspecified
CPT/HCPCS: 36415; 80048-TC

== ENCOUNTER → 2021-10-07 | Outpatient (CLI) | payer MEDICARE | END | disposition home or self-care (01) | LOC: MSC 15:00 | PROVIDERS: ATTEND Internal Medicine | DX: I12.9 Hypertensive chronic kidney disease with stage 1 through stage 4 chronic kidney disease, or unspecified chronic kidney disease (principal); N18.32 Chronic kidney disease, stage 3b; E83.9 Disorder of mineral metabolism, unspecified; M89.9 Disorder of bone, unspecified; N40.0 Benign prostatic hyperplasia without lower urinary tract symptoms; E03.9 Hypothyroidism, unspecified; H40.9 Unspecified glaucoma; Z87.898 Personal history of other specified conditions ==

== ENCOUNTER 2021-10-12 10:15 | Outpatient (CLI) | payer MEDICARE | END 2021-10-12 23:59 | disposition home or self-care (01) | LOC: MSC 10:15 | PROVIDERS: ATTEND Internal Medicine | DX: R60.0 Localized edema (principal); I12.9 Hypertensive chronic kidney disease with stage 1 through stage 4 chronic kidney disease, or unspecified chronic kidney disease; N18.32 Chronic kidney disease, stage 3b; E83.9 Disorder of mineral metabolism, unspecified; M89.9 Disorder of bone, unspecified; N40.0 Benign prostatic hyperplasia without lower urinary tract symptoms; E03.9 Hypothyroidism, unspecified; H40.9 Unspecified glaucoma; Z87.898 Personal history of other specified conditions ==

== ENCOUNTER 2021-10-20 15:27 | Outpatient (CLI) | payer MEDICARE ==
[2021-10-20 17:32] LABS: CALCIUM, SERUM 9.3 mg/dL (8.5-10.1); CREATININE 1.9 mg/dL (0.6-1.3); GLUCOSE 105 mg/dL (74-106); UREA NITROGEN, BLOOD 42 mg/dL (7-18)
[2021-10-20 20:07] LABS: CARBON DIOXIDE 18 mmol/L (21-32); CHLORIDE 100 mmol/L (98-107); POTASSIUM 4.8 mmol/L (3.5-5.1); SODIUM SERUM 134 mmol/L (136-145)
== END 2021-10-20 23:59 | disposition home or self-care (01) ==
LOC: LAB 15:27
PROVIDERS: ATTEND Internal Medicine
DX: N40.0 Benign prostatic hyperplasia without lower urinary tract symptoms (principal); N17.9 Acute kidney failure, unspecified; E87.5 Hyperkalemia
CPT/HCPCS: 36415; 80048-TC

== ENCOUNTER → 2021-10-25 | Outpatient (CLI) | payer MEDICARE | END | disposition home or self-care (01) | LOC: MSC 15:45 | PROVIDERS: ATTEND Internal Medicine | DX: I12.9 Hypertensive chronic kidney disease with stage 1 through stage 4 chronic kidney disease, or unspecified chronic kidney disease (principal); N18.32 Chronic kidney disease, stage 3b; E83.9 Disorder of mineral metabolism, unspecified; M89.9 Disorder of bone, unspecified; N40.0 Benign prostatic hyperplasia without lower urinary tract symptoms; E03.9 Hypothyroidism, unspecified; H40.9 Unspecified glaucoma; Z87.898 Personal history of other specified conditions; Z79.899 Other long term (current) drug therapy ==

== ENCOUNTER 2021-11-24 13:52 | Outpatient (CLI) | payer MEDICARE ==
[2021-11-24 14:40] LABS: CALCIUM, SERUM 8.9 mg/dL (8.5-10.1); CARBON DIOXIDE 28 mmol/L (21-32); CHLORIDE 102 mmol/L (98-107); CREATININE 1.9 mg/dL (0.6-1.3); GLUCOSE 99 mg/dL (74-106); POTASSIUM 5.2 mmol/L (3.5-5.1); SODIUM SERUM 135 mmol/L (136-145); UREA NITROGEN, BLOOD 40 mg/dL (7-18)
== END 2021-11-24 23:59 | disposition home or self-care (01) ==
LOC: LAB 13:52
PROVIDERS: ATTEND Internal Medicine
DX: N40.0 Benign prostatic hyperplasia without lower urinary tract symptoms (principal); N17.9 Acute kidney failure, unspecified; E03.9 Hypothyroidism, unspecified; E78.5 Hyperlipidemia, unspecified
CPT/HCPCS: 36415; 80048-TC

== ENCOUNTER → 2021-11-26 | Outpatient (CLI) | payer MEDICARE | END | disposition home or self-care (01) | LOC: MSC 14:30 | PROVIDERS: ATTEND Internal Medicine | DX: E87.5 Hyperkalemia (principal); I12.9 Hypertensive chronic kidney disease with stage 1 through stage 4 chronic kidney disease, or unspecified chronic kidney disease; N18.32 Chronic kidney disease, stage 3b; E83.9 Disorder of mineral metabolism, unspecified; M89.9 Disorder of bone, unspecified; N40.0 Benign prostatic hyperplasia without lower urinary tract symptoms; E03.9 Hypothyroidism, unspecified; H40.9 Unspecified glaucoma; Z87.898 Personal history of other specified conditions; Z79.899 Other long term (current) drug therapy ==

== ENCOUNTER 2021-12-21 14:26 | Outpatient (CLI) | payer MEDICARE ==
[2021-12-21 15:43] LABS: CALCIUM, SERUM 9.4 mg/dL (8.5-10.1); CARBON DIOXIDE 26 mmol/L (21-32); CHLORIDE 104 mmol/L (98-107); CREATININE 1.8 mg/dL (0.6-1.3); GLUCOSE 101 mg/dL (74-106); POTASSIUM 5.5 mmol/L (3.5-5.1); SODIUM SERUM 135 mmol/L (136-145); UREA NITROGEN, BLOOD 46 mg/dL (7-18)
== END 2021-12-21 23:59 | disposition home or self-care (01) ==
LOC: LAB 14:26
PROVIDERS: ATTEND Internal Medicine
DX: N17.9 Acute kidney failure, unspecified (principal); N40.0 Benign prostatic hyperplasia without lower urinary tract symptoms; E78.5 Hyperlipidemia, unspecified; E03.9 Hypothyroidism, unspecified
CPT/HCPCS: 36415; 80048-TC

== ENCOUNTER 2022-03-16 14:02 | Outpatient (CLI) | payer MEDICARE ==
[2022-03-16 15:06] LABS: CALCIUM, SERUM 9.1 mg/dL (8.5-10.1); CARBON DIOXIDE 23 mmol/L (21-32); CHLORIDE 102 mmol/L (98-107); CREATININE 1.8 mg/dL (0.6-1.3); GLUCOSE 89 mg/dL (74-106); SODIUM SERUM 132 mmol/L (136-145); UREA NITROGEN, BLOOD 50 mg/dL (7-18)
== END 2022-03-16 23:59 | disposition home or self-care (01) ==
LOC: LAB 14:02
PROVIDERS: ATTEND Internal Medicine
DX: E87.5 Hyperkalemia (principal); N40.0 Benign prostatic hyperplasia without lower urinary tract symptoms; E03.9 Hypothyroidism, unspecified; N17.9 Acute kidney failure, unspecified
CPT/HCPCS: 36415; 80048-TC

== ENCOUNTER 2023-01-06 20:00 | Emergency (ER) | payer MEDICARE ==
[~2023-01-06] VITALS: Ht 180.3 cm; Wt 77.1 kg
[2023-01-06] MEDS ORDERED: TDAP [DIPH/PERTUSSIS/TET] 0.5 ML VIAL IM ONE ×2 (20:30→21:28)
[2023-01-06] MEDS ORDERED: ACETAMINOPHEN ES 500 MG TABLET PO ONE (21:00)
[2023-01-06] MEDS ORDERED: ACETAMINOPHEN ES 500 MG TABLET ONE (21:27)
[2023-01-06] MEDS ORDERED: HYDR-3972 PO (22:56)
[2023-01-06] MEDS ORDERED: LIDO1ADH78 TD (22:56)
[2023-01-06 23:12] VITALS: BP 155/78; TEMP 98.2; O2SAT 98
== END 2023-01-06 23:13 | disposition home or self-care (01) ==
LOC: ER 20:05
DX: S51.012A Laceration without foreign body of left elbow, initial encounter (principal); I10 Essential (primary) hypertension; E03.9 Hypothyroidism, unspecified; Z88.1 Allergy status to other antibiotic agents; Z60.2 Problems related to living alone; Z79.899 Other long term (current) drug therapy; W18.09XA Striking against other object with subsequent fall, initial encounter; Y93.89 Activity, other specified; Y92.89 Other specified places as the place of occurrence of the external cause; Y99.8 Other external cause status
CPT/HCPCS: 90715

== ENCOUNTER 2023-11-25 14:16 | Emergency (ER) | payer MEDICARE ==
[~2023-11-25] VITALS: Ht 180.3 cm; Wt 80.3 kg
[~2023-11-25 14:16] MED LIST changes: +LIDO1ADH78 TD
[2023-11-25 16:23] VITALS: BP 164/74; TEMP 97.9; O2SAT 100
== END 2023-11-25 16:31 | disposition home or self-care (01) ==
LOC: ER 14:16
DX: R60.0 Localized edema (principal); M79.89 Other specified soft tissue disorders; I12.9 Hypertensive chronic kidney disease with stage 1 through stage 4 chronic kidney disease, or unspecified chronic kidney disease; N18.9 Chronic kidney disease, unspecified; E03.9 Hypothyroidism, unspecified; Z86.79 Personal history of other diseases of the circulatory system; Z88.8 Allergy status to other drugs, medicaments and biological substances; Z60.2 Problems related to living alone
CPT/HCPCS: 73564-TC; 93971-TC

== ENCOUNTER 2025-03-14 16:39 | Emergency (ER) | payer MEDICARE, OTHER ==
[~2025-03-14] VITALS: Ht 177.8 cm; Wt 79.4 kg
[2025-03-14 16:51] VITALS: TEMP 98.2
[2025-03-14 17:30] LABS: PLATELET COUNT (AUTO) 163 K/uL (150-450); RED BLOOD CELL COUNT(AUTO) 3.58 MIL/uL (4.5-6.0); RED CELL DISTRIBUTION WIDTH 17.4 % (11.5-15.0); WHITE BLOOD COUNT (AUTO) 5.0 K/uL (4.3-11.0)
[2025-03-14 17:38] LABS: CALCIUM, SERUM 9.0 mg/dL (8.5-10.1); CREATININE 2.1 mg/dL (0.6-1.3); SODIUM SERUM 139.0 mmol/L (136-145); UREA NITROGEN, BLOOD 53.0 mg/dL (7-18)
[2025-03-14 17:44] LABS: ASPARTATE AMINOTRANSFERASE 23.0 U/L (15-37); TOTAL PROTEIN, SERUM 7.2 g/dL (6.4-8.2)
[2025-03-14] MEDS ORDERED: IV NS 0.9% 500 ML BAG IV ONE (18:30)
[2025-03-14 18:48] LABS: APPEARANCE,URINE CLEAR (CLEAR); BLOOD, URINE NEGATIVE Ery/uL (NEGATIVE); LEUKOCYTE ESTERASE ,URINE NEGATIVE (NEGATIVE); NITRITE, URINE NEGATIVE (NEGATIVE); UGLUCOSE NEGATIVE (NEGATIVE)
[2025-03-14 20:21] VITALS: BP 135/80; O2SAT 98
== END 2025-03-14 19:51 | disposition home or self-care (01) ==
LOC: ER 16:45
DX: R10.9 Unspecified abdominal pain (principal); I13.10 Hypertensive heart and chronic kidney disease without heart failure, with stage 1 through stage 4 chronic kidney disease, or unspecified chronic kidney disease; N18.9 Chronic kidney disease, unspecified; N40.0 Benign prostatic hyperplasia without lower urinary tract symptoms; E03.9 Hypothyroidism, unspecified; E78.5 Hyperlipidemia, unspecified; Z79.624 Long term (current) use of inhibitors of nucleotide synthesis; Z79.899 Other long term (current) drug therapy; Z88.1 Allergy status to other antibiotic agents; Z60.2 Problems related to living alone
CPT/HCPCS: 36415; 80048-TC; 80076-TC; 83690-TC; 85025-TC